=== PATIENT | male | born 1950 | race Caucasian/White ===

== ENCOUNTER → 2016-10-01 | Outpatient (CLI) | payer BC ==
[~2016-10-01] MED LIST: AZEL30SP INTNAS; CHOL1000 PO; CYAN100020 PO; FINA5TAB PO; GLUCTAB7 PO; MILK150C PO; OMEG10007 PO; OXYC-57 PO; PRLSR20 PO; TERA5CAP PO; ZOLP10TA6 PO
--- NOTE | 2016-10-01 09:47 | DIAGNOSTIC IMAGING REPORT ---
RIGHT HUMERUS 2 VIEWS CLINICAL HISTORY: Fall with right arm pain. FINDINGS: AP and lateral views of the right humerus are obtained. No prior studies are available for comparison at the time of dictation. The skeletal structures appear well mineralized. No humeral fracture is seen. The shoulder and elbow joints appear grossly maintained. Mild sclerosis is identified in the greater tuberosity of the humeral head. Productive degenerative change is noted at the acromioclavicular joint. The overlying soft tissues are within normal limits. IMPRESSION: There is no radiographic evidence of right humeral fracture. Electronically signed by: Gabriel James M.D. 10/01/2016 9:44 AM Dictated Date/Time: 10/01/2016 9:43 AM
== END | disposition home or self-care (01) ==
LOC: C.RAD1850 09:20
PROVIDERS: ATTEND Nurse Practitioner Family
DX: M79.621 Pain in right upper arm (principal); W01.10XA Fall on same level from slipping, tripping and stumbling with subsequent striking against unspecified object, initial encounter

== ENCOUNTER → 2016-11-06 | Outpatient (CLI) | payer BC ==
--- NOTE | 2016-11-06 09:23 | DIAGNOSTIC IMAGING REPORT ---
RIGHT INGUINAL ULTRASOUND HISTORY: Intermittent right groin pain and pressure. COMPARISON: None. TECHNIQUE: Sonography of the right inguinal region was performed with and without stress maneuvers. FINDINGS: Note is made of a 3.2 x 2.5 x 1.6 cm cystic abnormality within the right groin which is more evident with the patient in the upright projection. This may have a thin septation with minimal peripheral complexity. This abnormality was compressible and contained no color flow. There is a possible small fat containing right inguinal hernia. IMPRESSION: 1. Possible small fat-containing right inguinal hernia. 2. 3.2 x 2.5 x 1.6 cm cystic abnormality within the right groin which was compressible. This is indeterminate although does not have suspicious imaging characteristics and could potentially be related to a right inguinal hernia sac which contains fluid. A CT of the pelvis could be obtained for further evaluation. Electronically signed by: Clovis Zuñiga M.D. 11/06/2016 9:22 AM Dictated Date/Time: 11/06/2016 9:15 AM
== END | disposition home or self-care (01) ==
LOC: C.ULTR 08:13
PROVIDERS: ATTEND Family Medicine
DX: R10.31 Right lower quadrant pain (principal); R93.5 Abnormal findings on diagnostic imaging of other abdominal regions, including retroperitoneum

== ENCOUNTER → 2016-11-14 | Outpatient (CLI) | payer BC ==
[~2016-11-14] MED LIST changes: +OPTIRAY 320 IV PRN
--- NOTE | 2016-11-14 12:11 | DIAGNOSTIC IMAGING REPORT ---
CT SCAN OF THE ABDOMEN AND PELVIS WITH IV CONTRAST CLINICAL HISTORY: Right lower quadrant abdominal pain. COMPARISON STUDY: Abdominal ultrasound dated 12/29/2005. TECHNIQUE: Following the IV administration of 118 cc of Optiray 320, CT scan of the abdomen and pelvis is performed from the lung bases to the proximal femora. Images are reviewed in the axial, sagittal, and coronal planes. IV contrast was administered without complication. Automated dose control exposure was utilized. CT DOSE: 667.83 mGycm FINDINGS: Lung bases: The heart is normal in size and without pericardial effusion. There is a 5 mm right lower lobe pulmonary nodule seen on image #5. The lung bases are clear. A 3 mm right middle lobe nodule is seen image #19. No airspace consolidation or pleural effusion is identified. There is a tiny hiatal hernia. Liver: The contrast-enhanced liver is normal in size and contour. The liver demonstrates diffusely diminished attenuation consistent with hepatic steatosis. There is no intrahepatic biliary ductal dilatation. The hepatic veins and portal veins are patent. Gallbladder: Unremarkable. Spleen: The spleen is mildly enlarged measuring 13.7 cm in length. The spleen is homogeneous in attenuation. Pancreas: Unremarkable. Adrenal glands: Unremarkable. Kidneys: The contrast enhanced kidneys are normal in size and without hydronephrosis. The kidneys enhance symmetrically. Abdominal vasculature: The abdominal aorta is normal in course and caliber. Bowel: The small bowel and colon are normal in course and caliber. There is moderate diverticulosis of the left colon without CT evidence of acute diverticulitis. The appendix is not visualized. Peritoneum: There is no intraperitoneal free air or abdominal ascites. Lymphadenopathy: None. Pelvic viscera: Although decompressed, the bladder wall appears circumferentially thickened. There is median lobe hypertrophy of the prostate gland. The seminal vesicles are normal as imaged. Fluid is noted along the right inguinal canal. There are numerous calcified phleboliths in the pelvis. Skeletal structures: The skeletal structures are osteopenic. Mild lumbosacral spondylosis is observed. A hemangioma is noted in the body of L2. No lytic or blastic lesions are seen. IMPRESSION: 1. There are no acute infectious or inflammatory findings in the abdomen or pelvis. 2. Hepatic steatosis. 3. Moderate diverticulosis of the left colon without CT evidence of acute diverticulosis. 4. Although decompressed, the bladder wall appears circumferentially thickened. Correlation with urinalysis will be required. 5. There are 2 pulmonary nodules at the right lung base measuring up to 5 mm. Correlation with a nonemergent chest CT is recommended for further interrogation. 6. Mild splenomegaly. 7. Additional findings as above. Electronically signed by: Gabriel James M.D. 11/14/2016 12:09 PM Dictated Date/Time: 11/14/2016 11:39 AM
== END | disposition home or self-care (01) ==
LOC: C.CTS 11:09
PROVIDERS: ATTEND Family Medicine
DX: R10.31 Right lower quadrant pain (principal); K76.0 Fatty (change of) liver, not elsewhere classified; K57.30 Diverticulosis of large intestine without perforation or abscess without bleeding; R91.8 Other nonspecific abnormal finding of lung field

== ENCOUNTER → 2016-11-25 | Outpatient (CLI) | payer BC ==
[~2016-11-25] MED LIST changes: -OPTIRAY 320 IV PRN
--- NOTE | 2016-11-25 08:16 | DIAGNOSTIC IMAGING REPORT ---
CT SCAN OF THE CHEST WITHOUT IV CONTRAST CLINICAL HISTORY: Pulmonary nodule. COMPARISON STUDY: Abdominal CT dated 11/14/2016. TECHNIQUE: CT scan of the thorax was performed from the thoracic inlet to the upper abdomen. Images are reviewed in the axial, sagittal, and coronal planes. IV contrast was not administered for this examination as per the referring clinician. CT DOSE: 318.77 mGy.cm FINDINGS: Thyroid: Imaged portions of the thyroid gland are normal in size and attenuation. Thoracic aorta: The thoracic aorta is normal in caliber and demonstrates standard 3-vessel arch anatomy. Heart: The heart is normal in size and without pericardial effusion. Lungs and pleural spaces: There is no airspace consolidation or pleural effusion. The trachea and central airways are clear. A fat-containing Bochdalek hernia is noted at the left lung base. There is a 4 mm pleural-based nodule in the right middle lobe seen on image #238. A 6 mm right lower lobe nodule seen image #226. These are unchanged from 11/14/[address] scan. No additional pulmonary nodules are identified. Mediastinum: There is no mediastinal lymphadenopathy. Lizett: Not well assessed without IV contrast. Axillae: There is no axillary lymphadenopathy. Upper abdomen: The spleen is mildly enlarged. There is evidence of hepatic steatosis. A tiny hiatal hernia is identified. Skeletal structures: No lytic or blastic bony lesions are seen. IMPRESSION: 1. There is no airspace consolidation or pleural effusion. 2. Unchanged appearance of 2 pulmonary nodules at the right lung base measuring up to 6 mm as compared to the 11/14/[address] These can be followed as per the Fleischner criteria. See below. 3. No additional pulmonary nodules are identified. 4. Hepatic steatosis. Please refer to below summary of Fleischner criteria recommendations for follow-up of incidental CT nodules (Chele Boateng, Guidelines for management of small pulmonary nodules detected on CT scans: A statement from the Fleischner Society, Radiology 237: [id number].) SOLID NODULES Solitary nodule size: <6 mm * low risk patients: no follow-up needed * high risk patients: optional CT at 12 months Solitary nodule size: 6-8 mm * low risk patients: follow-up at 6-12 months, then consider further follow-up at 18-24 months * high risk patients: initial follow-up CT at 6-12 months and then at 18-24 months if no change Solitary nodule size: >8 mm * either low or high risk patients - consider follow-up CT at 3 months, and/or CT-PET, and/or biopsy Multiple nodules size: <6 mm * low risk patients: no routine follow-up * high risk patients: optional CT at 12 months Multiple nodules size: 6-8 mm * low risk patients: follow-up at 3-6 months, then consider further follow-up at 18-24 months * high risk patients: follow-up at 3-6 months, then at 18-24 months if no change Multiple nodules size: >8 mm * low risk patients: follow-up at 3-6 months, then consider further follow-up at 18-24 months * high risk patients: follow-up at 3-6 months, then at 18-24 months if no change Note: newly detected indeterminate nodule in persons 35 years of age or older. * low risk patients: minimal or absent history of smoking and/or other known risk factors * high risk patients: history of smoking or of other known risk factors (e.g. first degree relative with lung cancer, or exposure to asbestos, radon, uranium) * if a nodule up to 8 mm is partly solid or is ground glass further follow-up is required after 24 months to exclude possible slow growing adenocarcinoma (JOSUÉ) SUBSOLID NODULES Solitary pure ground-glass nodule * nodule size <6 mm - no CT follow-up required * nodule size >=6 mm - follow-up CT at 6-12 months, then every 2 years until 5 years Solitary part-solid nodule * nodule size <6 mm - no CT follow-up required * nodule size >=6 mm - follow-up CT at 3-6 months. If unchanged, and solid component remains <6 mm, then annual follow-up for 5 years Multiple subsolid nodules * nodule size <6 mm - follow-up CT at 3-6 months, consider further follow-up at 2 and 4 years if stable * nodule size >=6 mm - follow-up CT at 3-6 months, subsequent management based on the most suspicious nodule(s) Electronically signed by: Gabriel James M.D. 11/25/2016 8:15 AM Dictated Date/Time: 11/25/2016 8:10 AM
== END | disposition home or self-care (01) ==
LOC: C.CTS 07:56
PROVIDERS: ATTEND Family Medicine
DX: R91.1 Solitary pulmonary nodule (principal); R16.1 Splenomegaly, not elsewhere classified

== ENCOUNTER → 2017-04-21 | Day surgery (SDC) | payer BC ==
[2017-04-09 08:41] VITALS: Ht 175.3 cm; Wt 80.9 kg
--- NOTE | 2017-04-09 09:14 | PAT Medication Instructions ---
Service Date Apr 09, 2017. Current Home Medication List Azelastine Hcl-Fluticasone Pro (Dymista), 2 SPRAYS INTNAS QAM Cholecalciferol (Vitamin D3), 1 TAB PO QAM Cyanocobalamin (Vitamin B12), 1,000 MCG PO QAM Finasteride (Proscar), 5 MG PO QAM Fish Oil (Perry-3), 1,000 MG PO QAM Hxmmpovucjd-Bushlpftyha-Qjk C- (Glucosamine Chondroitin), 2 TAB PO QAM Milk Thistle (Silybum Marianum (Milk Thistle), 600 MG PO QAM Omeprazole (Prilosec), 40 MG PO QAM Terazosin (Hytrin), 5 MG PO QAM Zolpidem Tartrate (Zolpidem Tartrate), 1 TAB PO HS Medication Instructions For Your Scheduled Surgery - Hold the following medications starting tomorrow 04/10: Milk Thistle (Silybum Marianum (Milk Thistle), 600 MG PO QAM Fish Oil (Perry-3), 1,000 MG PO QAM Hfmkwwintxw-Okhwfqrvqhx-Sgo C- (Glucosamine Chondroitin), 2 TAB PO QAM - Hold the following medications the morning of surgery: Cholecalciferol (Vitamin D3), 1 TAB PO QAM Cyanocobalamin (Vitamin B12), 1,000 MCG PO QAM - Take the following medications the morning of surgery with a sip of water: Terazosin (Hytrin), 5 MG PO QAM Omeprazole (Prilosec), 40 MG PO QAM Finasteride (Proscar), 5 MG PO QAM Azelastine Hcl-Fluticasone Pro (Dymista), 2 SPRAYS INTNAS QAM (if needed) - Take the following medications as scheduled the night before surgery: Zolpidem Tartrate (Zolpidem Tartrate), 1 TAB PO HS If you have any questions please call us at [phone] or [phone] or [phone]
[2017-04-09 10:38] LABS: BASO % 0.4 %; BASO ABS # 0.03 K/uL (0-0.2); COMPLETE YES; EOS % 1.6 %; HEMATOCRIT 42.3 % (42-52); IG% 0.6 %; LYMPH ABS # 1.63 K/uL (1.2-3.4); MEAN CELL VOLUME 92.8 fL (80-100); MEAN CORPUSCULAR HEMOGLOBIN 32.5 pg (25-34); MEAN PLATELET VOLUME 11.6 fL (7.4-10.4); MONO % 6.8 %; NEUT % 66.6 %; PLATELET COUNT 133 K/uL (130-400); RED BLOOD COUNT 4.56 M/uL (4.7-6.1); WHITE BLOOD COUNT 6.79 K/uL (4.8-10.8)
[2017-04-09 10:55] LABS: ALB/GLOB RATIO 1.1 (0.9-2); BUN/CREATININE RATIO 18.9 (10-20); CALCIUM 8.7 mg/dl (8.5-10.1); CREATININE 1.19 mg/dl (0.60-1.40); POTASSIUM 4.7 mmol/L (3.5-5.1)
[~2017-04-21] VITALS: Ht 175.3 cm; Wt 80.9 kg
[~2017-04-21] MED LIST changes: +ATROPINE SULFATE 0.1 MG/ML 5ML SYR IV PRN; +BUPIVACAINE 0.5 % 5 MG/1 ML MPF 30ML VIAL ONE; +CEFAZOLIN SOD 2000MG/10 ML IV PUSH IV ONE; +DEXAMETHASONE SOD INJ 4 MG/ML VIAL ONE; +EpHEDrine SULFATE 50MG/5ML SYR ONE; +EpHEDrine SULFATE INJ 50 MG/ML AMP IV PRN; +FENTANYL CITRATE INJ 50 MCG/1 ML 2 ML VIAL IV PRN; +FENTANYL CITRATE INJ 50 MCG/1 ML 2 ML VIAL ONE; +GLYCOPYRROLATE INJ 0.2 MG/ML VIAL ONE; +KETOROLAC TROMETHAMINE 30 MG/ML VIAL ONE; +LACTATED RINGER'S 1000ML 1,000 ML IV SCH; +LIDOCAINE HCL 2% 2 ML VIAL (20MG/ML) ONE; +MIDAZOLAM HCL 1 MG/ML 2ML VIAL ONE; +MISSING PHYSICIAN SIGNATURE ON ORDER SCH; +MoRPHine SULFATE 4 MG/ML 1 ML CARP\\VIAL IV PRN; +ONDANSETRON INJ 2 MG/ML 2 ML VIAL IV PRN; +ONDANSETRON INJ 2 MG/ML 2 ML VIAL ONE; +OXYCODONE/ACETAMINOPHEN 5-325 TAB PO PRN; +PROPOFOL IV EMULSION 10 MG/ML 20 ML VIAL IV ONE
[2017-04-21 05:40] VITALS: BP 124/74; PULSE 76; TEMP 36.5; O2SAT 94
--- NOTE | 2017-04-21 07:08 | History & Physical Bridge Note ---
H&P Re-Evaluation Bridge Note: I have examined the patient, reviewed the History & Physical and in the interval since the performance of the History & Physical I have noted the following changes of clinical significance: No changes noted
--- NOTE | 2017-04-21 08:45 | Discharge Instructions ---
Discharge Instructions Date of Service Apr 21, 2017. Visit Reason for Visit: Right Inguinal Hernia Discharge Discharge Diagnosis / Problem: repair of inguinal hernia with mesh Discharge Goals Goal(s): Decrease discomfort Activity Recommendations Activity Limitations: as noted below Lifting Limitations: no more than 10 pounds Shower/Bathe: no limitations (ok to shower) Driving or Machine Use: 1 week Anesthesia . Post Anesthesia Instructions: If you have had General Anesthesia or IV Sedation: * Do not drive today. * Resume driving when surgeon permits. * Do not make important decisions or sign legal documents today. * Call surgeon for: 1. Temperature elevations greater than 101 degrees F. 2. Uncontrollable pain. 3. Excessive bleeding. 4. Persistent nausea and vomiting. 5. Medication intolerance (nausea, vomiting or rash). * For nausea and vomiting use only clear liquids such as: tea, soda, bouillon until nausea subsides, then gradually increase diet as tolerated. * If you have any concerns or questions, call your surgeon's office. If physician is unavailable and it is an emergency, call 911 or go to the nearest emergency room. . Instructions / Follow-Up Instructions / Follow-Up Dr. Patterson in 1-2 weeks as planned, call [phone] if you have any questions You may take ibuprofen 600 mg every 6 hours as needed Diet Recommendations Recommended Home Diet: no limitations Procedures Procedures Performed: Open Right Inguinal Hernia Repair with Mesh Pending Studies Studies pending at discharge: no Medical Emergencies . Who to Call and When: Medical Emergencies: If at any time you feel your situation is an emergency, please call 911 immediately. . Non-Emergent Contact Non-Emergency issues call your: Surgeon Call Non-Emergent contact if: you have a fever, temperature is above 101.5, your pain is not controlled, wound has increased redness, you have any medication questions . . "Provider Documentation" section prepared by Michael Vila. .
--- NOTE | 2017-04-21 08:45 | [facility] Post Operative Brief Note ---
Immediate Operative Summary Operative Date Apr 21, 2017. Pre-Operative Diagnosis Right inguinal hernia Post-Operative Diagnosis Same as preop Procedure(s) Performed Open Right Inguinal Hernia Repair with Mesh Surgeon Dr. Patterson Body Team Member Surgeon(s) Sindy Vila PA-C Estimated Blood Loss 3 cc Findings moderate sized indirect inguinal hernia, high ligation of sac performed, ringplasty, and placement of atrium polypropylene mesh with 0 nurolon sutures. Ilioinguinal nerve divided. Specimens A: hernia sac Drains None Anesthesia GETA Complication(s) None Disposition Recovery Room / PACU
--- NOTE | 2017-04-21 08:52 | [facility] Operative Report ---
Operative Report Operative Date Apr 21, 2017. Pre-Operative Diagnosis Right inguinal hernia Post-Operative Diagnosis indirect right inguinal hernia Procedure(s) Performed Right inguinal hernia repair with mesh Surgeon Dr. Patterson Packing Machine Can Feeder Surgeon(s) Sindy Vila PA-C Estimated Blood Loss 3 cc Findings moderate sized indirect inguinal hernia, high ligation of sac performed, ringplasty performed, and placement of atrium polypropylene mesh with 0 nurolon sutures. Ilioinguinal nerve divided. Specimens A: hernia sac Drains None Anesthesia GETA Complication(s) None Disposition Recovery Room / PACU Indications 67-year-old male presented with symptomatic, reducible, right inguinal hernia. Plan for open right inguinal hernia repair with mesh. The risks of the procedure were discussed, all questions were answered, and the patient agreed to proceed with surgery as planned. Description of Procedure The patient was properly identified, consented, and taken to the operating room where he was placed in the supine position. General endotracheal anesthesia was induced. SCDs and a safety belt were placed. Preoperative antibiotics were administered. The patient's groins and abdomen were prepped and draped in the standard sterile fashion. A surgical timeout was performed and all parties were in agreement that this was the correct patient and procedure to be performed and we continued as planned. Local anesthetic in the form of 0.5% Marcaine was injected along the proposed incision site. An oblique incision was made in the right groin and deepened down to subcutaneous tissue with electrocautery. The aponeurosis of the external oblique muscle was cleared of investing tissue. A small incision was made in the aponeurosis of the external oblique muscle with a knife and lengthened under direct visualization with Metzenbaum scissors. Flaps were raised cephalad and caudad on the posterior portion of the external oblique. The ilioinguinal nerve was identified divided. The cord structures were circumferentially dissected and encircled with a [place] drain. A moderate sized indirect inguinal hernia was noted. The hernia sac was dissected away from the cord structures. The hernia sac was opened and contained no intra-abdominal contents, and a high ligation of the hernia sac was then performed by twisting the sac and suture ligating it with 2-0 Vicryl suture, and allowing it to reduce back into the abdomen. The hernia sac was sent as specimen. Hemostasis was achieved within the wound. A ring plasty was performed with 0 Nurolon sutures. A piece of Atrium inguinal polypropylene mesh was sewn into place using interrupted 0 Nurolon sutures. It was secured to the pubic tubercle medially, the inguinal ligament caudad, and the conjoined tendon cephalad. The internal ring was recreated by securing the tails and could accommodate the tip of the surgeons fifth digit. The wound was irrigated and hemostasis confirmed. The aponeurosis of the external oblique was then closed with a running 3-0 Vicryl suture. The wound was irrigated. Valery's fascia was reapproximated with interrupted 3-0 Vicryl suture. The skin was closed with a running 4-0 Monocryl subcuticular suture, and Dermabond was placed over the incision. The patient was extubated in the operating room and taken to the PACU for recovery without apparent incident. All sponge, instrument, and needle counts were correct at the conclusion of the procedure. The patient tolerated the procedure well. I attest to the content of the Intraoperative Record and any orders documented therein. Any exceptions are noted below.
--- NOTE | 2017-04-21 09:36 | Anesthesiology Progress Note ---
Anesthesia Post Op Note Date & Time Apr 21, 2017 at 09:36 Vital Signs Pain Intensity: 0 Vital Signs Past 12 Hours Date Time Temp Pulse Resp B/P (MAP) Pulse Ox O2 Delivery O2 Flow Rate FiO2 04/21/17 09:30 72 20 114/75 93 Room Air 04/21/17 09:20 77 14 115/77 93 Room Air 04/21/17 09:10 82 14 108/75 92 Room Air 04/21/17 09:00 76 14 106/74 96 Oxymask 10 04/21/17 08:50 79 14 109/71 96 Oxymask 10 04/21/17 08:44 36.6 88 14 121/73 93 Oxymask 10 04/21/17 05:40 36.5 76 18 124/74 (91) 94 Room Air Notes Mental Status: alert / awake / arousable, participated in evaluation Pt Amnestic to Procedure: Yes Nausea / Vomiting: adequately controlled Pain: adequately controlled Airway Patency, RR, SpO2: stable & adequate BP & HR: stable & adequate Hydration State: stable & adequate Anesthetic Complications: no major complications apparent
[2017-04-21 09:40] VITALS: BP 116/75; PULSE 76; TEMP 36.4; O2SAT 96
[2017-04-21 10:10] VITALS: BP 118/67; PULSE 77; O2SAT 94
[2017-04-21 10:40] VITALS: BP 112/63; PULSE 72; TEMP 36.5; O2SAT 98
== END | disposition home or self-care (01) ==
LOC: C.ACU 05:20
PROVIDERS: ATTEND Surgery
DX: K40.90 Unilateral inguinal hernia, without obstruction or gangrene, not specified as recurrent (principal)

== ENCOUNTER → 2017-06-19 | Outpatient (CLI) | payer OTHER ==
[~2017-06-19] MED LIST changes: -ATROPINE SULFATE 0.1 MG/ML 5ML SYR IV PRN; -BUPIVACAINE 0.5 % 5 MG/1 ML MPF 30ML VIAL ONE; -CEFAZOLIN SOD 2000MG/10 ML IV PUSH IV ONE; -DEXAMETHASONE SOD INJ 4 MG/ML VIAL ONE; -EpHEDrine SULFATE 50MG/5ML SYR ONE; -EpHEDrine SULFATE INJ 50 MG/ML AMP IV PRN; -FENTANYL CITRATE INJ 50 MCG/1 ML 2 ML VIAL IV PRN; -FENTANYL CITRATE INJ 50 MCG/1 ML 2 ML VIAL ONE; -GLYCOPYRROLATE INJ 0.2 MG/ML VIAL ONE; -KETOROLAC TROMETHAMINE 30 MG/ML VIAL ONE; -LACTATED RINGER'S 1000ML 1,000 ML IV SCH; -LIDOCAINE HCL 2% 2 ML VIAL (20MG/ML) ONE; -MIDAZOLAM HCL 1 MG/ML 2ML VIAL ONE; -MISSING PHYSICIAN SIGNATURE ON ORDER SCH; -MoRPHine SULFATE 4 MG/ML 1 ML CARP\\VIAL IV PRN; -ONDANSETRON INJ 2 MG/ML 2 ML VIAL IV PRN; -ONDANSETRON INJ 2 MG/ML 2 ML VIAL ONE; -OXYCODONE/ACETAMINOPHEN 5-325 TAB PO PRN; -PROPOFOL IV EMULSION 10 MG/ML 20 ML VIAL IV ONE
--- NOTE | 2017-06-19 09:12 | DIAGNOSTIC IMAGING REPORT ---
CT SCAN OF THE CHEST WITHOUT IV CONTRAST CLINICAL HISTORY: Follow-up pulmonary nodule. COMPARISON STUDY: Chest CT dated 11/25/2016. Abdominal CT dated 11/14/2016. TECHNIQUE: CT scan of the thorax was performed from the thoracic inlet to the upper abdomen. Images are reviewed in the axial, sagittal, and coronal planes. IV contrast was not administered for this examination as per the referring clinician. A dose lowering protocol was utilized adhering to the principles of ALARA. CT DOSE: 487.31 mGy.cm FINDINGS: Thyroid: Imaged portions of the thyroid gland are normal in size and attenuation. Thoracic aorta: The thoracic aorta is normal in caliber and demonstrates standard 3-vessel arch anatomy. Heart: The heart is normal in size and without pericardial effusion. Lungs and pleural spaces: There is no airspace consolidation or pleural effusion. The trachea and central airways are clear. A fat-containing Bochdalek hernia is noted at the left lung base. There is a 4 mm pleural-based nodule in the right middle lobe seen on image #224. A 6 mm right lower lobe nodule seen image #207. These are unchanged dating back to the 11/14/[address] scan. No new pulmonary nodule is identified. Mediastinum: There is no mediastinal lymphadenopathy. Lizett: Not well assessed without IV contrast. Axillae: There is no axillary lymphadenopathy. Upper abdomen: The spleen is mildly enlarged. There is evidence of hepatic steatosis. A tiny hiatal hernia is identified. Skeletal structures: The skeletal structures are osteopenic. Arthritic change is seen in the shoulders. No lytic or blastic bony lesions are seen. A hemangioma is noted in the body of L2. IMPRESSION: 1. There is no airspace consolidation or pleural effusion. 2. Unchanged appearance of 2 pulmonary nodules at the right lung base measuring up to 6 mm dating back to the 11/14/[address] Continued follow-up is recommended as per the Fleischner criteria. See below. 3. No new pulmonary nodules are identified. 4. Hepatic steatosis and mild splenomegaly. Please refer to below summary of Fleischner criteria recommendations for follow-up of incidental CT nodules (Chele Boateng, Guidelines for management of small pulmonary nodules detected on CT scans: A statement from the Fleischner Society, Radiology 237: [phone].) SOLID NODULES Solitary nodule size: <6 mm * low risk patients: no follow-up needed * high risk patients: optional CT at 12 months Solitary nodule size: 6-8 mm * low risk patients: follow-up at 6-12 months, then consider further follow-up at 18-24 months * high risk patients: initial follow-up CT at 6-12 months and then at 18-24 months if no change Solitary nodule size: >8 mm * either low or high risk patients - consider follow-up CT at 3 months, and/or CT-PET, and/or biopsy Multiple nodules size: <6 mm * low risk patients: no routine follow-up * high risk patients: optional CT at 12 months Multiple nodules size: 6-8 mm * low risk patients: follow-up at 3-6 months, then consider further follow-up at 18-24 months * high risk patients: follow-up at 3-6 months, then at 18-24 months if no change Multiple nodules size: >8 mm * low risk patients: follow-up at 3-6 months, then consider further follow-up at 18-24 months * high risk patients: follow-up at 3-6 months, then at 18-24 months if no change Note: newly detected indeterminate nodule in persons 35 years of age or older. * low risk patients: minimal or absent history of smoking and/or other known risk factors * high risk patients: history of smoking or of other known risk factors (e.g. first degree relative with lung cancer, or exposure to asbestos, radon, uranium) * if a nodule up to 8 mm is partly solid or is ground glass further follow-up is required after 24 months to exclude possible slow growing adenocarcinoma (JOSUÉ) SUBSOLID NODULES Solitary pure ground-glass nodule * nodule size <6 mm - no CT follow-up required * nodule size >=6 mm - follow-up CT at 6-12 months, then every 2 years until 5 years Solitary part-solid nodule * nodule size <6 mm - no CT follow-up required * nodule size >=6 mm - follow-up CT at 3-6 months. If unchanged, and solid component remains <6 mm, then annual follow-up for 5 years Multiple subsolid nodules * nodule size <6 mm - follow-up CT at 3-6 months, consider further follow-up at 2 and 4 years if stable * nodule size >=6 mm - follow-up CT at 3-6 months, subsequent management based on the most suspicious nodule(s) Electronically signed by: Gabriel James M.D. 06/19/2017 9:11 AM Dictated Date/Time: 06/19/2017 9:07 AM
== END | disposition home or self-care (01) ==
LOC: C.CTS 08:48
PROVIDERS: ATTEND Family Medicine
DX: R91.1 Solitary pulmonary nodule (principal); K76.0 Fatty (change of) liver, not elsewhere classified; R16.1 Splenomegaly, not elsewhere classified

== ENCOUNTER 2022-06-26 10:02 | Inpatient (IN) ==
[2022-06-26] MEDS ORDERED: SODIUM CHLORIDE 0.9% 1000ML 1,000 ML IV STA (10:27)
[2022-06-26] MEDS ORDERED: ONDANSETRON INJ 2 MG/ML 2 ML VIAL IV STA ×2 (10:27→15:32)
--- NOTE | 2022-06-26 10:30 | Emergency Department Note ---
Impression & Plan SBO (small bowel obstruction) ADMIT ED Provider Note HPI: The patient is a 72-year-old male who presents emergency department with 2 days of mid abdominal pain as well as nausea and vomiting. Patient states he saw his PCP this morning who thought he likely had enteritis however over concern for the patient's symptoms and possible dehydration he was sent to the ED for further evaluation. On arrival here to the ED the patient is in no acute distress, he has some mild abdominal tenderness on exam but he is otherwise hemodynamically stable and saturating well on room air. Patient states that he has had some difficulty with p.o. intake over the past 2 days and seems to have vomiting every time he eats or drinks anything. ROS: - Per HPI *Outpatient medications and allergy history reviewed. *Pertinent external medical records reviewed. 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 IV was established, lab work obtained, patient was placed on equipment monitor phototypesetting. CT imaging of the abdomen pelvis was obtained that shows concern for possible small bowel obstruction, patient's lab work shows a mild leukocytosis, otherwise no critical electrolyte abnormalities are noted. On reassessment patient states he still does have some discomfort but is improved from previous. He was given some Protonix as he also complained of some epigastric discomfort later in his stay. Suspect this is likely gastritis secondary to his episodes of vomiting. I discussed CT imaging and lab work results with the patient and his , he has not had any active vomiting while here in the ED therefore will defer NG tube placement unless he becomes more symptomatic. Case was discussed with on-call general surgery midlevel provider, Aggie Tim, in general surgery consultation was placed. Case was then discussed with the hospitalist service for Karishma Conklin and the patient was placed for admission in stable condition for further care. Disposition discussion held by myself with: Patient and at the bedside Diagnosis: 1. Nausea and vomiting, acute 2. Small bowel obstruction, acute 3. Abdominal pain, acute 4. Leukocytosis, nonspecific Disposition: Admission Alexander Perales DO Emergency Medicine Past Med/Surg History Medical History (Updated 06/26/22 @ 14:28 by Alexander Perales DO) BPH (benign prostatic hyperplasia) Chronic bronchitis STATES YEARS AGO; NO ISSUES IN YEARS GERD (gastroesophageal reflux disease) Hyperlipidemia Osteoarthritis HIPS Rotator cuff injury RIGHT Surgical History History of left cataract surgery S/P appendectomy S/P colon resection DURING APPY SURGEON REMOVED SOMETHING SUSPICIOUS IN COLON S/P colonoscopy S/P inguinal hernia repair RIGHT Status post tonsillectomy Social History Smoking Status: Never smoker Second Hand Exposure: No; Hx Alcohol Use: Yes (2-3 PER DAY) Alcohol type: beer, wine and hard liquor Hx Substance Use: No Preferred Language: Czech Communication Ability: Effective Yard Driver Required: No Beliefs That Will Affect Care: None Current Living Situation: Spouse Feels Safe at Home: Yes Assistive Devices: None Allergies Allergies Allergy/AdvReac Type Severity Reaction Status Date / Time No Known Allergies Allergy Verified 10/28/21 11:55 Home Meds Home Medications Medication Instructions Recorded Confirmed acidophilus 100 million 1 cap PO QAM 10/10/21 10/28/21 cell-pectin, citrus 10 mg capsule atorvastatin 20 mg tablet 20 mg PO DAILY 10/10/21 10/28/21 azelastine 205.5 mcg (0.15 %) 2 spray intranasal BID PRN 10/10/21 10/28/21 nasal spray CONGESTED chlorpheniramine-phenylpropan 4 1 tab PO QAM 10/10/21 10/28/21 mg-25 mg tablet dicyclomine 10 mg capsule 10 mg PO QID PRN Abdominal Pain 10/10/21 10/28/21 famotidine 20 mg tablet (Pepcid) 20 mg PO QID PRN Heartburn 10/10/21 10/28/21 finasteride 5 mg tablet 5 mg PO QAM 10/10/21 10/28/21 glucosamine sulfate 500 mg tablet 500 mg PO QAM 10/10/21 10/28/21 (Glucosamine) multivitamin 1 tab PO QAM 10/10/21 10/28/21 s-adenosylmethionine 400 mg tablet 400 mg PO QAM 10/10/21 10/28/21 ([place]avan-E) terazosin 5 mg tablet 5 mg PO QAM 10/10/21 10/28/21 vitamin E 400 unit tablet 400 unit PO QAM 10/10/21 10/28/21 zolpidem 10 mg tablet 10 mg PO HS 10/10/21 10/28/21 Results & Data (ED) Vital Signs Vital Signs - 24 hr 06/26/22 10:09 06/26/22 10:59 06/26/22 12:48 Temperature 36.1 C L Temperature Source Oral Pulse Rate 67 Pulse Rate [Right Finger] 72 Pulse Rhythm Regular Pulse Strength Normal Respiratory Rate 18 20 Respiratory Effort / Characteristics Non-Labored Spontaneous Non-Labored Respiratory Depth Normal Normal Respiratory Pattern Regular Blood Pressure 136/88 Blood Pressure [Right Arm] 147/85 H Blood Pressure Mean 104 Blood Pressure Mean [Right Arm] 105 Blood Pressure Position Sitting Pulse Oximetry 95 95 Oxygen Delivery Method Room Air Room Air Sepsis Recent Fever Within 48 Hours No Sepsis New/Unexplained Change in Mental Status No Sepsis Action Taken by Nursing No Action Required 06/26/22 13:55 Temperature Temperature Source Pulse Rate Pulse Rate [Right Finger] 66 Pulse Rhythm Pulse Strength Respiratory Rate 20 Respiratory Effort / Characteristics Non-Labored Respiratory Depth Normal Respiratory Pattern Blood Pressure Blood Pressure [Right Arm] 144/86 H Blood Pressure Mean Blood Pressure Mean [Right Arm] 105 Blood Pressure Position Pulse Oximetry 94 Oxygen Delivery Method Room Air Sepsis Recent Fever Within 48 Hours Sepsis New/Unexplained Change in Mental Status Sepsis Action Taken by Nursing Laboratory Data 06/26/22 10:55 06/26/22 10:55 Lab Results 06/26/22 06/26/22 Range/Units 10:55 10:55 WBC 13.76 H (4.8-10.8) K/ul RBC 4.98 (4.63-6.08) M/uL Hgb 15.7 (14.0-18.0) g/dl Hct 45.9 (40.1-51.0) % MCV 92.2 (80.0-100.0) fL MCH 31.5 (25.0-34.0) pg MCHC 34.2 (32.0-36.0) g/dL RDW Std Deviation 38.3 (36.4-46.3) fL RDW Coeff of [place] 11.3 L (11.5-14.5) % Plt Count 160 (130-400) K/uL MPV 11.5 (9.4-12.4) fL Immature Gran % (Auto) 0.2 % Neut % (Auto) 87.5 % Lymph % (Auto) 7.8 % [place] % (Auto) 4.4 % Eos % (Auto) 0.0 % Baso % (Auto) 0.1 % Neut # (Auto) 12.04 H (1.4-6.5) K/uL Lymph # (Auto) 1.07 L (1.2-3.4) K/uL [place] # (Auto) 0.60 (0.24-0.82) K/uL Eos # (Auto) 0.00 (0-0.50) K/uL Baso # (Auto) 0.02 (0-0.2) K/uL Immature Gran # (Auto) 0.03 H (0.00-0.02) K/uL Sodium 142 (136-145) mmol/L Potassium 3.8 (3.5-5.1) mmol/L Chloride 103 (98-107) mmol/L Carbon Dioxide 33 H (21-32) mmol/L Anion Gap 6 (3-11) BUN 24 H (6-23) mg/dl Creatinine 1.06 (0.6-1.4) mg/dl Est Cr Clr Drug Dosing 58.9 ml/min Est GFR ( Amer) 80.9 ml/min Est GFR (Non-Af Amer) 69.8 ml/min BUN/Creatinine Ratio 22.6 H (10-20) Glucose 142 H (70-99(Fasting)) mg/dl Calcium 9.8 (8.5-10.1) mg/dl Total Bilirubin 0.9 (0.2-1.0) mg/dl AST 29 (13-39) U/L ALT 25 (7-52) U/L Alkaline Phosphatase 57 (34-104) U/L Total Protein 6.7 (6.0-8.3) gm/dl Albumin 4.2 (3.4-5.0) gm/dl Globulin 2.5 (2.5-4.0) gm/dl Albumin/Globulin Ratio 1.7 (0.9-2) Lipase 15 (11-82) U/L Administered Medications Discontinued Medications Sodium Chloride (Nss 1000ml) 1,000 mls @ 999 mls/hr IV .Q1H1M STA Stop: 06/26/22 11:27 Last Infusion: 06/26/22 12:13 Dose: 0 mls/hr Documented By: Admin: 06/26/22 11:00 Dose: 999 mls/hr Documented By: LEXI Sodium Chloride (Nss 1000ml) 1,000 mls @ 999 mls/hr IV .Q1H1M ONE Stop: 06/26/22 14:17 Last Admin: 06/26/22 13:54 Dose: 999 mls/hr Documented By: TYE Pantoprazole Sodium 40 mg/ (Syringe) 10 mls @ 5 mls/min IV NOW ONE Stop: 06/26/22 13:56 Last Admin: 06/26/22 14:18 Dose: 5 mls/min Documented By: TYE Ioversol (Optiray 350 100ml) 90 ml IV ONCE ONE Stop: 06/26/22 12:46 Last Admin: 06/26/22 12:45 Dose: 90 ml Documented By: VIRGILIO Ondansetron HCl (Ondansetron Inj 2 Mg/Ml 2 Ml Vial) 4 mg IV NOW STA Stop: 06/26/22 10:28 Last Admin: 06/26/22 11:18 Dose: 4 mg Documented By: TYE Imaging Data Radiologist's Impression: Abdomen/Pelvis CT 06/26/22 10:27 CT abd pelvis IV con only CLINICAL HISTORY: Abdominal pain, history of diverticulitis, n/v TECHNIQUE: Helical axial images of the abdomen and pelvis were obtained and displayed. Automated dose lowering techniques and/or adjustment according to patient size were utilized for this exam. This exam was performed with intravenous contrast. CT DOSE: 485.62 mGy.cm COMPARISON: Comparison is made to CT abdomen pelvis 06/26/2021 FINDINGS: Lower chest: Bibasilar atelectasis versus scarring is seen. There is a 5 mm pleural-based nodule in the right lower lobe (series 3 image 36). Liver: Unremarkable. No focal lesions are seen. Gallbladder and biliary tree: No calcified gallstones. Normal caliber wall. No intra- or extrahepatic biliary ductal dilation. Pancreas: Unremarkable, no focal lesions. Spleen: Unremarkable. Adrenals: Unremarkable. Kidneys and ureters: Unremarkable. Bladder: Unremarkable. Reproductive organs: Unremarkable. Bowel: Diverticulosis is seen without evidence of diverticulitis. There are numerous dilated loops of small bowel as well as prominent dilation of the stomach. No proximal transition point is seen. There is a gradual transition point in the distal ileum. There is surrounding fat stranding and a small amount of free fluid. No pneumatosis intestinalis is seen. Small amount of stool is noted in the colon. Lymph nodes Retroperitoneal: Unremarkable. Pelvic: Unremarkable. Mesenteric: Unremarkable. Peritoneum: Normal. Vessels: Mild atherosclerotic disease is seen. Abdominal wall: Unremarkable. Bones: Degenerative changes in the visualized spine. IMPRESSION: 1. Multiple distended loops of bowel are seen with a gradual distal transition to underdistended ileum. Findings are compatible with ileus versus low-grade small bowel obstruction. No evidence of bowel perforation or necrosis is seen. 2. Diverticulosis without diverticulitis. 3. Stable 5 mm pleural-based lung nodule in the right lower lobe. ACT 112: Negative or not required by law. Electronically signed by: Akash Lester M.D. 06/26/2022 1:15 PM Discharge Plan Visit Data Chief Complaint: Vomiting Stated Complaint: CRAMPS AND VOMITING ED Provider: Alexander Perales Discharge Problem: SBO (small bowel obstruction) Patient Disposition: Admitted As Inpatient Forms Stand Alone Forms: [facility] Prescriptions Prescriptions: No Action multivitamin Tablet 1 tab PO QAM chlorpheniramine-phenylpropan 4-25 mg Tablet 1 tab PO QAM terazosin 5 mg Tablet 5 mg PO QAM atorvastatin 20 mg Tablet 20 mg PO DAILY glucosamine sulfate [Glucosamine] 500 mg Tablet 500 mg PO QAM famotidine [Pepcid] 20 mg Tablet 20 mg PO QID PRN (Reason: Heartburn) vitamin E 400 unit Tablet 400 unit PO QAM zolpidem 10 mg Tablet 10 mg PO HS dicyclomine 10 mg Capsule 10 mg PO QID PRN (Reason: Abdominal Pain) finasteride 5 mg Tablet 5 mg PO QAM Donavan-E 400 mg Tablet 400 mg PO QAM azelastine 205.5 mcg (0.15 %) [place],Non-Aerosol 2 spray INTRANASAL BID PRN (Reason: CONGESTED) acidophilus-pectin, citrus 100 million cell-10 mg Capsule 1 cap PO QAM Referrals Referrals: Ashvin Hu MD [Primary Care Provider] -
[2022-06-26 11:16] LABS: Hematocrit (blood only) 45.9 % (40.1-51.0); Hemoglobin 15.7 g/dl (14.0-18.0); Lymphocytes % (auto) 7.8 %; Mean Corpuscular Hemoglobin 31.5 pg (25.0-34.0); Mean Corpuscular Hgb Conc 34.2 g/dL (32.0-36.0); Mean Corpuscular Volume 92.2 fL (80.0-100.0); Mean Platelet Volume 11.5 fL (9.4-12.4); Monocytes % (auto) 4.4 %; Neutrophils % (auto) 87.5 %; Platelet Count 160 K/uL (130-400); RDW Coefficient of Variation 11.3 % (11.5-14.5); RDW Standard Deviation 38.3 fL (36.4-46.3); Red Blood Count 4.98 M/uL (4.63-6.08); White Blood Count 13.76 K/ul (4.8-10.8)
[2022-06-26 11:17] LABS: Basophils # (auto) 0.02 K/uL (0-0.2); Basophils % (auto) 0.1 %; Immature Granulocytes # (auto) 0.03 K/uL (0.00-0.02); Immature Granulocytes % (auto) 0.2 %; Lymphocytes # (auto) 1.07 K/uL (1.2-3.4); Neutrophils # (auto) 12.04 K/uL (1.4-6.5)
[2022-06-26 12:19] LABS: Albumin Level 4.2 gm/dl (3.4-5.0); Bilirubin,Total 0.9 mg/dl (0.2-1.0); Calcium 9.8 mg/dl (8.5-10.1); Creatinine Clr Calc Pharmacy 58.9 ml/min; Est GFR (African American) 80.9 ml/min; Est GFR (Non-African American) 69.8 ml/min; Potassium 3.8 mmol/L (3.5-5.1); Total Protein 6.7 gm/dl (6.0-8.3)
[2022-06-26 12:25] LABS: Albumin Globulin Ratio 1.7 (0.9-2); BUN Creatinine Ratio 22.6 (10-20); Globulin 2.5 gm/dl (2.5-4.0)
[2022-06-26] MEDS ORDERED: OPTIRAY 350 100ml IV ONE (12:45)
--- NOTE | 2022-06-26 13:16 | CT Scan Report ---
CT abd pelvis IV con only CLINICAL HISTORY: Abdominal pain, history of diverticulitis, n/v TECHNIQUE: Helical axial images of the abdomen and pelvis were obtained and displayed. Automated dose lowering techniques and/or adjustment according to patient size were utilized for this exam. This e xam was performed with intravenous contrast. CT DOSE: 485.62 mGy.cm COMPARISON: Comparison is made to CT abdomen pelvis 06/26/2021 FINDINGS: Lower chest: Bibasilar atelectasis versus scarring is seen. There is a 5 mm pleural-based nodule in the right lower lobe (series 3 image 36). Liver: Unremarkable. No focal lesions are seen. Gallbladder and biliary tree: No calcified gallstones. Normal caliber wall. No intra- or extrahepatic biliary ductal dilation. Pancreas: Unremarkable, no focal lesions. Spleen: Unremarkable. Adrenals: Unremarkable. Kidneys and ureters: Unremarkable. Bladder: Unremarkable. Reproductive organs: Unremarkable. Bowel: Diverticulosis is seen without evidence of diverticulitis. There are numerous dilated loops of small bowel as well as prominent dilation of the stomach. No proximal transition point is seen. Ther e is a gradual transition point in the distal ileum. There is surrounding fat stranding and a small a mount of free fluid. No pneumatosis intestinalis is seen. Small amount of stool is noted in the colon . Lymph nodes Retroperitoneal: Unremarkable. Pelvic: Unremarkable. Mesenteric: Unremarkable. Peritoneum: Normal. Vessels: Mild atherosclerotic disease is seen. Abdominal wall: Unremarkable. Bones: Degenerative changes in the visualized spine. IMPRESSION: 1. Multiple distended loops of bowel are seen with a gradual distal transition to underdistended ile um. Findings are compatible with ileus versus low-grade small bowel obstruction. No evidence of bowel perforation or necrosis is seen. 2. Diverticulosis without diverticulitis. 3. Stable 5 mm pleural-based lung nodule in the right lower lobe. ACT 112: Negative or not required by law. Electronically signed by: Akash Lester M.D. 06/26/2022 1:15 PM
[2022-06-26] MEDS ORDERED: SODIUM CHLORIDE 0.9% 1000ML 1,000 ML IV ONE (13:17)
[2022-06-26] MEDS ORDERED: PANTOprazole 40 MG in SYRINGE 0 ML IV ONE (13:55)
--- NOTE | 2022-06-26 14:10 | History & Physical Report ---
Date of Service June 26, 2022 Assessment & Plan (1) SBO (small bowel obstruction): Plan: - 2 days of moderate abdominal cramping, nausea, vomiting, last BM today. Has been having daily BMs. - CTAP: Multiple distended loops of bowel are seen with a gradual distal tr ansition to underdistended ileum. Findings are compatible with ileus versus low- grade small bowel obstruction. No evidence of bowel perforation or necrosis is seen. Diverticulosis without diverticulitis. Stable 5 mm pleural-based lung nodule in the right lower lobe. - Vomiting has subsided. Was able to eat cheerios this morning without vomiting. With daily BMs, suspect if he had a partial SBO that it may be resolving. - General surgery consulted, appreciate recommendations and assistance with this patient. - NPO, LRs 125 cc/hr. Will hold off on NG tube given vomiting is subsided. (2) Hyperlipidemia: Plan: - Hold statin for now while NPO for possible SBO. (3) GERD (gastroesophageal reflux disease): Plan: - IV Protonix daily while NPO for possible SBO. (4) BPH (benign prostatic hyperplasia): Plan: - Hold terazosin, finasteride while NPO for possible SBO. Plan - Admit to med/surg. - SCDs for VTE ppx. - Full Code. History of Present Illness Chief Complaint: abdominal cramping, nausea, vomiting x 2 days Primary Care Provider: Ashvin Hu MD Malik Peck is a 72-year-old male with past medical history significant for hyperlipidemia, GERD, osteoarthritis, BPH, and partial colectomy in 2/2 diverticulitis who is presenting today with abdominal pain. He was at his GI doctor's office today to be seen for 2 days of mid abdominal pain associate with nausea and vomiting. He feels his abdomen is distended. He has been having daily bowel movements, normal in appearance for him without melena or hematochezia. They are formed. He has vomiting has been better since this morning and he was able to eat a small amount of Cheerios without regurgitation or vomiting. He has been afebrile. His biggest complaint at this point is nausea. Given concern for possible bowel obstruction and dehydration, he was sent to the ED for further evaluation. He has a history of rectal prolapse surgery within the past 2 years as well as a colectomy in the for dive rticulitis. On presentation, vital signs within normal limits and stable. Labs notable for a white count of 13 with left shift. Lactate pending. There are no electrolyte abnormalities, his renal function is at baseline, without elevated LFTs. Lipase 15. CT A/P shows multiple distended loops of bowel seen with a gradual distal transition to an under distended ileum, findings compatible with ileus versus low-grade small bowel obstruction. There is no evidence of bowel perforation or necrosis seen. There is diverticulosis without diverticulitis, and a stable 5 mm pleural-based lung nodule in the right lower lobe. Allergies Allergy/AdvReac Type Severity Reaction Status Date / Time No Known Allergies Allergy Verified 06/26/22 16:21 Home Medications Medication Instructions Recorded Confirmed Type acidophilus 100 million 1 cap PO QAM 10/10/21 06/26/22 History cell-pectin, citrus 10 mg capsule atorvastatin 20 mg tablet 20 mg PO DAILY 10/10/21 06/26/22 History azelastine 205.5 mcg (0.15 %) 2 spray intranasal BID PRN 10/10/21 06/26/22 History nasal spray Congestion dicyclomine 10 mg capsule 10 mg PO QID PRN Abdominal Pain 10/10/21 06/26/22 History finasteride 5 mg tablet 5 mg PO QAM 10/10/21 06/26/22 History s-adenosylmethionine 400 mg tablet 400 mg PO QAM 10/10/21 06/26/22 History (Donavan-E) cholecalciferol (vitamin D3) 25 0 mcg PO DAILY 06/26/22 06/26/22 History mcg (1,000 unit) tablet (Vitamin D3) glucosamine sulfate 1,000 mg 1,000 mg PO DAILY 06/26/22 06/26/22 History capsule omeprazole 20 mg capsule,delayed 20 mg PO BID 06/26/22 06/26/22 History release terazosin 5 mg capsule 5 mg PO QAM 06/26/22 06/26/22 History vitamin E 268 mg (400 unit) capsule 268 mg PO DAILY 06/26/22 06/26/22 History Past Med/Surg History Medical History (Updated 06/26/22 @ 14:28 by Alexander Perales DO) BPH (benign prostatic hyperplasia) Chronic bronchitis STATES YEARS AGO; NO ISSUES IN YEARS GERD (gastroesophageal reflux disease) Hyperlipidemia Osteoarthritis HIPS Rotator cuff injury RIGHT Surgical History History of left cataract surgery S/P appendectomy S/P colon resection DURING APPY SURGEON REMOVED SOMETHING SUSPICIOUS IN COLON S/P colonoscopy S/P inguinal hernia repair RIGHT Status post tonsillectomy Social History Smoking Status: Never smoker Second Hand Exposure: No; Hx Alcohol Use: Yes (2-3 PER DAY) Alcohol type: beer, wine and hard liquor Hx Substance Use: No Preferred Language: Malay Communication Ability: Effective Stoker Mechanic Required: No Beliefs That Will Affect Care: None Current Living Situation: Spouse Feels Safe at Home: Yes Assistive Devices: None Review of Systems Review of Systems: Constitutional: No fever/chills, weakness, fatigue, myalgias, anorexia, night sweats Eyes: No diplopia, no worsening or blurred vision ENT: normal hearing, no trouble swallowing Respiratory: No cough, sputum, dyspnea at rest or on exertion Cardiovascular: No chest pain, tightness or palpitations Abdomen: Abdominal pain, nausea, nonbloody emesis x15 times over past 2 days with daily, nonbloody BMs : Denies dysuria, hematuria, increased urgency/frequency, urinary retention Musculoskeletal: No joint pain, calf pain, swelling Neurologic: No weakness, numbness/tingling, or balance problems Psychiatric: No anxiety or depression Skin: No rash or itch Physical Exam Physical Exam: General: awake, alert, no apparent distress Head: Normocephalic, atraumatic ENT: PERRL, EOMI, no pharyngeal exudate, mucous membranes moist Chest: Clear to auscultation, on room air, no adventitious breath sounds Cardiac: Regular rate and rhythm, no murmur, no JVD, normal peripheral pulses, good capillary refill Abdominal: Mildly distended abdomen, soft, NABS x 4 quadrants, nontender to palpation, no rebound, guarding or tenderness Extremities: Normal inspection, no peripheral edema or erythema, calfs nontender to palpation Psych: Normal mood and affect Neuro: AAO x 3, strength intact bilaterally and rated 5/5, no motor deficits, speech is clear, no peripheral sensory deficits Skin: no rash or erythema Results & Data Results & Data ([facility]) Vital Signs (Past 12 Hours) Vital Signs Temp Pulse Pulse Resp BP BP Pulse Ox 06/26/22 13:55 66 20 144/86 H 94 06/26/22 12:48 72 20 147/85 H 95 06/26/22 10:59 06/26/22 10:09 36.1 C L 67 18 136/88 95 O2 Del Method 06/26/22 13:55 Room Air 06/26/22 12:48 Room Air 06/26/22 10:59 Room Air 06/26/22 10:09 Laboratory Results Abnormal lab results 06/26/22 06/26/22 Range/Units 10:55 10:55 WBC 13.76 H (4.8-10.8) K/ul RDW Coeff of [place] 11.3 L (11.5-14.5) % Neut # (Auto) 12.04 H (1.4-6.5) K/uL Lymph # (Auto) 1.07 L (1.2-3.4) K/uL Immature Gran # (Auto) 0.03 H (0.00-0.02) K/uL Carbon Dioxide 33 H (21-32) mmol/L BUN 24 H (6-23) mg/dl BUN/Creatinine Ratio 22.6 H (10-20) Glucose 142 H (70-99(Fasting)) mg/dl Diagnostic Findings Abdomen/Pelvis CT 06/26/22 10:27 CT abd pelvis IV con only CLINICAL HISTORY: Abdominal pain, history of diverticulitis, n/v TECHNIQUE: Helical axial images of the abdomen and pelvis were obtained and displayed. Automated dose lowering techniques and/or adjustment according to patient size were utilized for this exam. This exam was performed with intravenous contrast. CT DOSE: 485.62 mGy.cm COMPARISON: Comparison is made to CT abdomen pelvis 06/26/2021 FINDINGS: Lower chest: Bibasilar atelectasis versus scarring is seen. There is a 5 mm pleural-based nodule in the right lower lobe (series 3 image 36). Liver: Unremarkable. No focal lesions are seen. Gallbladder and biliary tree: No calcified gallstones. Normal caliber wall. No intra- or extrahepatic biliary ductal dilation. Pancreas: Unremarkable, no focal lesions. Spleen: Unremarkable. Adrenals: Unremarkable. Kidneys and ureters: Unremarkable. Bladder: Unremarkable. Reproductive organs: Unremarkable. Bowel: Diverticulosis is seen without evidence of diverticulitis. There are numerous dilated loops of small bowel as well as prominent dilation of the stomach. No proximal transition point is seen. There is a gradual transition point in the distal ileum. There is surrounding fat stranding and a small amount of free fluid. No pneumatosis intestinalis is seen. Small amount of stool is noted in the colon. Lymph nodes Retroperitoneal: Unremarkable. Pelvic: Unremarkable. Mesenteric: Unremarkable. Peritoneum: Normal. Vessels: Mild atherosclerotic disease is seen. Abdominal wall: Unremarkable. Bones: Degenerative changes in the visualized spine. IMPRESSION: 1. Multiple distended loops of bowel are seen with a gradual distal transition to underdistended ileum. Findings are compatible with ileus versus low-grade small bowel obstruction. No evidence of bowel perforation or necrosis is seen. 2. Diverticulosis without diverticulitis. 3. Stable 5 mm pleural-based lung nodule in the right lower lobe. ACT 112: Negative or not required by law. Electronically signed by: Akash Lester M.D. 06/26/2022 1:15 PM Code Status & VTE Plan Code Status Full Code. Supervising Physician Co-Signing Physician Notes Patient seen and examined, chart reviewed, case discussed with Minna Fuller PA-C and I agree with the assessment and plan as above except as otherwise noted Labs and images reviewed Malik is a 72-year-old male with a past medical history of partial colon resection 2/2 diverticulitis and no prior history of bowel obstruction who presented with 2 days of mild abdominal pain, nausea, vomiting, abdominal distention. CT A/P with distended loops of bowel concerning for ileus versus low-grade/developing SBO. Patient is uncomfortable with increasing belching/hiccuping on exam. He has had small bowel movements and flatus. Is not able to tolerate p.o. due to nausea/vomiting. Recommended for admission to medical service due to comorbidities, has a history of GERD/hyperlipidemia. Neurosurgery consulted by ER and on admission. Patient is made n.p.o., continued on clears, NGT deferred as patient was having flatus and some bowel movements but if clinically worsens this should be placed. At bedside he is nondistressed, hiccuping, lungs are clear, heart is regular, abdomen is softly distended and tympanitic. Bowel sounds are present but decreased. Agree with conservative medical management as above, continue to follow for progression. Did discuss possibility of adhesions and progression to complete bowel obstruction with patient, no additional questions or concerns at time of admission. PG Care Time/CCT Total # of Minutes Spent Total Time Spent with Patient: Total time spent is greater than 50% in coordination of care (as documented) at patient's floor/unit and/or counseling patient: Coding Level of Care Code 12964 INT INP/OBS CARE 1/40MIN Diagnoses SBO (small bowel obstruction) K56.609 Hyperlipidemia E78.5 GERD (gastroesophageal reflux disease) K21.9 BPH (benign prostatic hyperplasia) N40.0
[2022-06-26 17:01] LABS: Appearance Urine Clear (Clear); Bacteria Urine Automated Negative (Negative); Bilirubin Urine Negative (Negative); Blood Urine Negative (Negative); Color Urine Dark Yellow; Epithelial Cell Urine Auto 20-30 /lpf (0-5); Glucose Urine UA Negative (Negative); Ketones Urine Negative (Negative); Leukocyte Esterase Urine Negative (Negative); Nitrite Urine Negative (Negative); Protein Urine Trace (Negative); RBC Urine Automated 0-4 /hpf (0-4); Urobilinogen Urine Negative (Negative)
[2022-06-26 17:05] LABS: Specific Gravity Urine >= 1.045 (1.000-1.030)
--- NOTE | 2022-06-26 18:53 | Surgery Consultation ---
Date of Consultation June 26, 2022 Assessment & Plan (1) SBO (small bowel obstruction): The patient has been admitted on the hospitalist service. We recommend proceeding as follows: Is unclear if the patient is merely suffering from a gastroenteritis/enteritis or if he has a partial small bowel obstruction. I did discuss with the patient that if he did have a partial small bowel obstruction it is likely on the basis of adhesions from prior surgery. Would recommend making the patient n.p.o. Implement IV fluids for hydration Follow serial labs Provide analgesics Provide antiemetics The patient notes that his nausea and vomiting had improved since yesterday but he did have one episode approximately 15 minutes prior to my interview with the patient. He does note that he is passing flatus and had a bowel movement earlier today as well. I did discuss with him the possibility of placing an NG tube for decompression of his GI tract. At the present time the patient wishes to hold off on this modality to see if his symptoms continue to improve. I did discuss with the patient that if he has clinical deterioration such as if he has worsening abdominal pain or worsening abdominal distention or continued nausea and vomiting we will need to revisit the modality of an NG tube and he is agreeable to this Additional recommendations be forthcoming based on his clinical course as it unfolds Remainder of plan as directed by primary service Supervising Physician Co-Signing Physician Notes I personally saw and evaluated the patient with Williams Phillips PA-C and agree with the assessment and plan. 72-year-old male with partial small bowel obstruction He is being admitted to the medical service Keep n.p.o., IV fluids, NG tube placement if needed No plans for surgical intervention at this time History of Present Illness Reason for Consultation: Small bowel obstruction History of Present Illness This is a 72-year-old male who presented to the emergency department secondary to ongoing abdominal pain along with nausea and vomiting for approximate 2 to 3 days. Patient says prior to this beginning he was feeling well in his usual state of health. He does note approximate 2 to 3 days ago he developed some just generalized abdominal pain along with nausea and vomiting. He denies any diarrhea and he also denies any fevers, shakes, or chills. Patient says that yesterday he had approximately 15 episodes of emesis. He did notice slight improvement today but his symptoms not completely resolved prompting his visit to the emergency department. He notes that he did have a normal bowel movement today and he has been passing flatus. He did not have any emesis today until approximately 15 minutes prior to my arrival at the bedside. I question the patient on previous surgeries and he undergo an appendectomy along with a partial colectomy secondary to diverticulitis in 1990. He also underwent a right inguinal hernia repair. Since arrival to the hospital the patient has had labs and imaging which I independently reviewed. CT scan of the abdomen pelvis utilizing IV contrast was performed. This showed the patient had multiple distended loops of small bowel were noted with a gradual transition to a nondistended ileum. The interpreting radiologist felt that this was compatible with either an ileus or a low-grade small bowel obstruction. There is no evidence of bowel perforation or necrosis. Diverticulosis without evidence of diverticulitis was noted. Labs include a CBC her white blood cell count was 13.7. Hemoglobin, hematocrit, platelet count were all within normal range. Chemistry profile showed sodium, potassium, and creatinine were normal. There is a slight elevation of his BUN at 24. There is no elevation of patient's lactate which was within normal range at 0.8. LFTs were nonelevated. Lipase was nonelevated. Urinalysis was performed that was not indicative of infection. A COVID test was noted be negative. Since arrival to the emergency department patient has received approximately 2 L of normal saline solution along with 4 mg of Zofran. At the time of my interview the patient was resting comfortably in bed and he was in no distress. Allergies Allergy/AdvReac Type Severity Reaction Status Date / Time No Known Allergies Allergy Verified 06/26/22 16:21 Home Medications Medication Instructions Recorded Confirmed Type acidophilus 100 million 1 cap PO QAM 10/10/21 06/26/22 History cell-pectin, citrus 10 mg capsule atorvastatin 20 mg tablet 20 mg PO DAILY 10/10/21 06/26/22 History azelastine 205.5 mcg (0.15 %) 2 spray intranasal BID PRN 10/10/21 06/26/22 History nasal spray Congestion dicyclomine 10 mg capsule 10 mg PO QID PRN Abdominal Pain 10/10/21 06/26/22 History finasteride 5 mg tablet 5 mg PO QAM 10/10/21 06/26/22 History s-adenosylmethionine 400 mg tablet 400 mg PO QAM 10/10/21 06/26/22 History (Donavan-E) cholecalciferol (vitamin D3) 25 0 mcg PO DAILY 06/26/22 06/26/22 History mcg (1,000 unit) tablet (Vitamin D3) glucosamine sulfate 1,000 mg 1,000 mg PO DAILY 06/26/22 06/26/22 History capsule omeprazole 20 mg capsule,delayed 20 mg PO BID 06/26/22 06/26/22 History release terazosin 5 mg capsule 5 mg PO QAM 06/26/22 06/26/22 History vitamin E 268 mg (400 unit) capsule 268 mg PO DAILY 06/26/22 06/26/22 History Patient History Medical History BPH (benign prostatic hyperplasia) Chronic bronchitis STATES YEARS AGO; NO ISSUES IN YEARS GERD (gastroesophageal reflux disease) Hyperlipidemia Osteoarthritis HIPS Rotator cuff injury RIGHT Surgical History History of left cataract surgery S/P appendectomy S/P colon resection DURING APPY SURGEON REMOVED SOMETHING SUSPICIOUS IN COLON S/P colonoscopy S/P inguinal hernia repair RIGHT Status post tonsillectomy Social History Smoking Status: Never smoker Second Hand Exposure: No; Hx Alcohol Use: Yes Alcohol type: beer, wine and hard liquor Hx Substance Use: No Preferred Language: Italian Communication Ability: Effective Lithographic Artist Required: No Beliefs That Will Affect Care: None Current Living Situation: Spouse Other Information That Helps Us Care for You: No Feels Safe at Home: Yes Safety Concerns: Feels Safe At This Time Assistive Devices: None Review of Systems Constitutional: no fever and no chills Eyes: no eye pain Ear, Nose, Mouth, Throat: no ear pain Respiratory: no cough and no dyspnea Cardiovascular: no chest pain Gastrointestinal: as per Subjective / HPI Genitourinary: no dysuria Musculoskeletal: no back pain Integumentary: no rash Neurologic: no localized weakness Physical Exam Constitutional: WD/WN, vitals as above Eyes: no conjunctival abnormality ENMT: Ears: no hearing impairment and no external ear abnormality Mouth: no oropharynx abnormality Neck: trachea midline Respiratory: normal respiratory effort; no respiratory distress and no labored breathing Cardiovascular: Rate/Rhythm: regular rate and regular rhythm Vessels: dorsalis pedis pulses present Gastrointestinal (Abdomen): Abdomen is noted to be mildly distended. Bowel sounds are hypoactive. Patient had a well-healed midline incision. I did not appreciate any hernias. There is no rebound tenderness or guarding. The patient only had slight tenderness to palpation in a generalized fashion. His abdomen was slightly tympanic to percussion. Musculoskeletal: No calf tenderness Skin: no rashes Neurologic: moves all extremities Psychiatric: A+Ox3, euthymic affect Results & Data ([facility]) Vital Signs (Past 12 Hours) Vital Signs Temp Pulse Pulse Resp BP BP Pulse Ox 06/26/22 17:26 99 H 16 165/85 H 92 06/26/22 15:07 66 20 137/88 94 06/26/22 13:55 66 20 144/86 H 94 06/26/22 12:48 72 20 147/85 H 95 06/26/22 10:59 06/26/22 10:09 36.1 C L 67 18 136/88 95 O2 Del Method 06/26/22 17:26 06/26/22 15:07 Room Air 06/26/22 13:55 Room Air 06/26/22 12:48 Room Air 06/26/22 10:59 Room Air 06/26/22 10:09 PG Care Time/CCT Total # of Minutes Spent Total Time Spent with Patient: Total time spent is greater than 50% in coordination of care (as documented) at patient's floor/unit and/or counseling patient: Coding Level of Care Code 31656 INT INP/OBS CARE 3/75MIN Diagnoses SBO (small bowel obstruction) K56.609
[2022-06-26] MEDS ORDERED: ONDANSETRON INJ 2 MG/ML 2 ML VIAL IV PRN (19:18)
[2022-06-26] MEDS: LACTATED RINGER'S 1,000 ML IV SCH (20:44)
[2022-06-26] MEDS ORDERED: Nursing to Pharmacy Communication SCH (22:15)
[2022-06-27] MEDS: LACTATED RINGER'S 1,000 ML IV SCH (05:30)
[2022-06-27 09:20] LABS: Basophils # (auto) 0.03 K/uL (0-0.2); Basophils % (auto) 0.3 %; Eosinophils # (auto) 0.19 K/uL (0-0.50); Eosinophils % (auto) 1.8 %; Hematocrit (blood only) 38.4 % (40.1-51.0); Immature Granulocytes # (auto) 0.04 K/uL (0.00-0.02); Immature Granulocytes % (auto) 0.4 %; Lymphocytes # (auto) 1.64 K/uL (1.2-3.4); Lymphocytes % (auto) 15.9 %; Mean Corpuscular Hemoglobin 31.8 pg (25.0-34.0); Mean Corpuscular Hgb Conc 33.9 g/dL (32.0-36.0); Mean Corpuscular Volume 93.9 fL (80.0-100.0); Mean Platelet Volume 11.6 fL (9.4-12.4); Monocytes # (auto) 0.92 K/uL (0.24-0.82); Monocytes % (auto) 8.9 %; Neutrophils # (auto) 7.48 K/uL (1.4-6.5); Neutrophils % (auto) 72.7 %; Platelet Count 145 K/uL (130-400); RDW Coefficient of Variation 11.3 % (11.5-14.5); RDW Standard Deviation 38.2 fL (36.4-46.3); Red Blood Count 4.09 M/uL (4.63-6.08)
[2022-06-27 09:43] LABS: BUN Creatinine Ratio 22.7 (10-20); Calcium 7.9 mg/dl (8.5-10.1); Creatinine Clr Calc Pharmacy 66.6 ml/min; Est GFR (Non-African American) 77.7 ml/min; Magnesium 1.9 mg/dl (1.7-2.4); Potassium 3.6 mmol/L (3.5-5.1)
--- NOTE | 2022-06-27 10:52 | Surgery Progress Note ---
Date of Service June 27, 2022 Assessment & Plan (1) SBO (small bowel obstruction): Plan: Patient here with concern for SBO He is feeling improvement in his symptoms. Has had multiple BMs overnight. no n/v Will advance to clear liquids, pending toleration continue to advance as tolerates to low fiber No plans for surgical intervention Admission and Anticipated Discharge Date Admission Date: June 26, 2022 Supervising Physician Co-Signing Physician Notes I personally saw and evaluated the patient with Aggie Barakat PA-C and agree with the assessment and plan. 72-year-old male with partial small bowel obstruction He has had multiple bowel movements and has no nausea Can advance diet as tolerated and discharge the patient if he continues to tolerate a diet and has return of bowel function Subjective Patient reports feeling better. Passing BMs and gas. No nausea/vomiting since yesterday. Pain improving. Requesting to be discharged Physical Exam Physical Exam: awake/alert Gastrointestinal (Abdomen): Percussion/Palpation: abdomen soft; abdomen nontender Results & Data ([facility]) Vital Signs (Past 12 Hours) Vital Signs Temp Pulse Resp BP Pulse Ox O2 Del Method 06/27/22 07:39 36.9 C 57 L 16 116/71 92 Room Air PG Care Time/CCT Total # of Minutes Spent Total Time Spent with Patient: Total time spent is greater than 50% in coordination of care (as documented) at patient's floor/unit and/or counseling patient: Coding Level of Care Code 98372 SUB INP/OBS CARE 07/02MIN Diagnoses SBO (small bowel obstruction) K56.609
[2022-06-27] MEDS ORDERED: PANTOprazole 40 MG in SYRINGE 0 ML IV SCH (11:00)
--- NOTE | 2022-06-27 11:33 | XRay Report ---
KUB HISTORY: Possible small bowel obstruction. Abdominal distention. COMPARISON: Abdomen and pelvis CT 06/26/2022. KUB 03/13/2022. FINDINGS: Multiple mildly dilated gas-filled loops of small bowel are again seen throughout the abdom en. There is gas within the nondistended colon. This is similar to the prior study. No renal calculi . No ureteral calculi. Calcifications in the deep pelvis likely represent phleboliths. No pneumoperit oneum or pneumatosis. IMPRESSION: No significant change in multiple mildly dilated gas-filled loops of small bowel seen throughout the abdomen. This could represent an ileus versus partial small bowel obstruction. ACT 112: Negative or not required by law. Electronically signed by: Ronan Berumen M.D. 06/27/2022 11:32 AM
--- NOTE | 2022-06-27 12:26 | Discharge Summary ---
Date of Service June 27, 2022 Admission HPI Per Admitting Provider Malik Peck is a 72-year-old male with past medical history significant for hyperlipidemia, GERD, osteoarthritis, BPH, and partial colectomy in 2/2 diverticulitis who is presenting today with abdominal pain. He was at his GI doctor's office today to be seen for 2 days of mid abdominal pain associate with nausea and vomiting. He feels his abdomen is distended. He has been having daily bowel movements, normal in appearance for him without melena or hematochezia. They are formed. He has vomiting has been better since this morning and he was able to eat a small amount of Cheerios without regurgitation or vomiting. He has been afebrile. His biggest complaint at this point is nausea. Given concern for possible bowel obstruction and dehydration, he was sent to the ED for further evaluation. He has a history of rectal prolapse surgery within the past 2 years as well as a colectomy in the for diverticulitis. On presentation, vital signs within normal limits and stable. Labs notable for a white count of 13 with left shift. Lactate pending. There are no electrolyte abnormalities, his renal function is at baseline, without elevated LFTs. Lipase 15. CT A/P shows multiple distended loops of bowel seen with a gradual distal transition to an under distended ileum, findings compatible with ileus versus low-grade small bowel obstruction. There is no evidence of bowel perforation or necrosis seen. There is diverticulosis without diverticulitis, and a stable 5 mm pleural-based lung nodule in the right lower lobe. Principal Diagnosis Partial small bowel obstruction Discharge Exam General-alert and oriented x3, no fevers, no chills HEENT-head atraumatic and normocephalic, pupils equal and reactive to light, extraocular muscles intact Neck-no lymphadenopathy or thyromegaly, trachea midline Chest-clear to auscultation percussion. No rales wheezing or rhonchi Cardiac-regular rate and rhythm, normal S1 and S2 Abdomen-normal bowel sounds, nontender, no hepatosplenomegaly Extremities-no cyanosis, clubbing, or edema Neuro-cranial nerves II through XII intact, motor and sensory function within normal limits, strength symmetrical , no focal deficits Psych-normal affect, normal mood Discharge Data Allergies Allergy/AdvReac Type Severity Reaction Status Date / Time No Known Allergies Allergy Verified 06/26/22 16:21 Consultations 06/26/22 13:57 Consult General Surgery Routine 06/26/22 14:08 ED Decision to Admit Stat 06/26/22 19:18 Consult General Surgery Routine Ordered Studies 06/26/22 10:27 CT abd pelvis IV con only Stat Hospital Course (1) SBO (small bowel obstruction): Most likely partial. Now resolved. This could also have possibly been simply a viral gastroenteritis. Nausea and vomiting has resolved. Abdomen is soft with active bowel sounds and nontender. KUB x-ray reveals no changes today. He has been started on a clear liquid diet and he will advance as tolerated. (2) Hyperlipidemia: Statin therapy was held on admission. Will restart at discharge. (3) GERD (gastroesophageal reflux disease): IV Protonix daily while hospitalized (4) BPH (benign prostatic hyperplasia): Resume terazosin, finasteride at discharge Plan Discharge to home today, June 27. He will follow-up with his primary care provider. Total Time Total Time Spent Total Time Spent (In Minutes): 35 minutes Discharge Plan Discharge Items Patient Disposition: Home - Self-Care Reason For Visit: SBO Discharge Diagnosis: Suspected partial small bowel obstruction Activity: Resume your previous activity Non-emergency contact: Primary Care Provider Call non-emergency contact if: your symptoms worsen Follow-up/Referrals: Ashvin Hu MD [Primary Care Provider] - Diet: Regular Addtl Attending Provider Instructions: No new medications Pending Studies at Discharge: No Stand-Alone Forms: My Gallery [employer], Smoking Cessation Medications and DC Order Prescriptions: Continued atorvastatin 20 mg Tablet 20 mg PO DAILY dicyclomine 10 mg Capsule 10 mg PO QID PRN (Reason: Abdominal Pain) finasteride 5 mg Tablet 5 mg PO QAM Donavan-E 400 mg Tablet 400 mg PO QAM azelastine 205.5 mcg (0.15 %) [place],Non-Aerosol 2 spray INTRANASAL BID PRN (Reason: Congestion) acidophilus-pectin, citrus 100 million cell-10 mg Capsule 1 cap PO QAM omeprazole 20 mg capsule,delayed release(DR/EC) 20 mg PO BID terazosin 5 mg capsule 5 mg PO QAM vitamin E [Vitamin E-400] 268 mg (400 unit) Capsule 268 mg PO DAILY cholecalciferol (vitamin D3) [Vitamin D3] 25 mcg (1,000 unit) Tablet 0 mcg PO DAILY glucosamine sulfate 1,000 mg Capsule 1,000 mg PO DAILY Rx Instructions: administer with a meal Discharge Orders: Discharge Order (Routine); Ordered 06/27/22 Ordered By: Osmar Hoang Admission Data Admit Date/Time: 06/26/22 14:11 Attending Provider: Osmar Hoang Admit Provider: Matt Timmons Primary Care Provider: Ashvin Hu Other Providers: Fitz Hernandez ; Matt Timmons Coding Level of Care Code HOSP INP/OBS DISCH >30 MIN Diagnoses SBO (small bowel obstruction) K56.609 Hyperlipidemia E78.5 GERD (gastroesophageal reflux disease) K21.9 BPH (benign prostatic hyperplasia) N40.0
== END 2022-06-27 14:30 | disposition home or self-care (01) | DRG 390 ==
LOC: ED 10:02 → EDINP 14:11 → SUATTDRO 14:11 → 3W 19:11
DX: E78.5 Hyperlipidemia, unspecified; A08.4 Viral intestinal infection, unspecified; M16.0 Bilateral primary osteoarthritis of hip; K21.9 Gastro-esophageal reflux disease without esophagitis; N40.0 Benign prostatic hyperplasia without lower urinary tract symptoms; K57.90 Diverticulosis of intestine, part unspecified, without perforation or abscess without bleeding; K56.51 Intestinal adhesions [bands], with partial obstruction

== ENCOUNTER 2023-07-03 15:03 | Observation (INO) ==
--- NOTE | 2023-07-03 15:18 | ED Triage Note ---
Date of Service July 03, 2023 Provider in Triage Author: Esdras Longoria History of Present Illness This patient was briefly evaluated while in triage. An abbreviated physical exam was performed. This patient is a 73-year-old Male who presents to the ED for evaluation of nausea, vomiting and inability keep anything down since yesterday afternoon. Patient has not had any diarrhea. He has had chills. Patient reports abdominal discomfort, rating his discomfort an 8 out of 10. Patient has had a prior history of small bowel obstruction, with his last episode approximately 2 years ago. Patient has had a prior history of colectomy for concerning lesion. Physical Exam CONSTITUTIONAL: Healthy and well nourished. HEENT: No scleral icterus or conjunctival injection. Mucous membranes are dry. RESPIRATORY: Clear to auscultation bilaterally with no wheezing, crackles, rhonchi or stridor. CARDIOVASCULAR: Regular rate and rhythm with no murmurs, rubs or gallops. GASTROINTESTINAL: Bowel sounds present in all quadrants. Patient has diffuse abdominal tenderness to palpation. MUSCULOSKELETAL: Full range of motion of all joints without discomfort. INTEGUMENTARY: No rash or other significant dermatologic conditions noted. HEMATOLOGIC: No ecchymosis or petechiae. PSYCHIATRIC: Positive affect. NEUROLOGIC: No focal neurologic deficits noted. Initial orders for labs and / or imaging were placed and patient was placed in the waiting area until a bed is available. Please see further documentation for the full ED course.
[2023-07-03] MEDS: ONDANSETRON INJ 2 MG/ML 2 ML VIAL IV STA (16:36)
[2023-07-03 16:48] LABS: Basophils # (auto) 0.02 K/uL (0.00-0.20); Basophils % (auto) 0.1 %; Eosinophils # (auto) 0.01 K/uL (0.00-0.50); Eosinophils % (auto) 0.1 %; Hematocrit (blood only) 49.7 % (42.0-52.0); Hemoglobin 17.3 g/dl (14.0-18.0); Immature Granulocytes # (auto) 0.06 K/uL (0.01-0.20); Immature Granulocytes % (auto) 0.4 %; Lymphocytes # (auto) 1.24 K/uL (1.20-3.40); Lymphocytes % (auto) 8.7 %; Mean Corpuscular Hemoglobin 31.3 pg (25.0-34.0); Mean Corpuscular Hgb Conc 34.8 g/dL (32.0-36.0); Mean Corpuscular Volume 89.9 fL (80.0-100.0); Mean Platelet Volume 11.3 fL (9.4-12.4); Monocytes # (auto) 0.61 K/uL (0.11-0.59); Monocytes % (auto) 4.3 %; Neutrophils # (auto) 12.38 K/uL (1.40-6.50); Neutrophils % (auto) 86.4 %; Platelet Count 172 K/uL (130-400); RDW Coefficient of Variation 11.5 % (11.5-14.5); RDW Standard Deviation 37.8 fL (36.4-46.3); Red Blood Count 5.53 M/uL (4.70-6.10); White Blood Count 14.32 K/ul (4.8-10.8)
[2023-07-03 17:01] LABS: Calcium 10.5 mg/dl (8.6-10.3)
[2023-07-03 17:07] LABS: Albumin Globulin Ratio 1.8 (0.9-2); BUN Creatinine Ratio 22.1 (10-20); Creatinine Clr Calc Pharmacy 61.2 ml/min; Est GFR (African American) 82.2 ml/min; Est GFR (Non-African American) 70.9 ml/min; Globulin 2.8 gm/dl (2.5-4.0); Total Protein 7.8 gm/dl (6.0-8.3)
[2023-07-03] MEDS: OPTIRAY 320 500ml IV ONE (18:49)
[2023-07-03] MEDS: METOCLOPRAMIDE HCL INJ 5 MG/ML 2 ML VIAL IV STA (19:39)
[2023-07-03] MEDS: SODIUM CHLORIDE 0.9% 1,000 ML IV ONE (19:54)
--- NOTE | 2023-07-03 19:59 | CT Scan Report ---
Exam(s): CT ABDOMEN + PELVIS With Contrast IV Amt: 80 ml optiray 320 EXAM: CT Abdomen and Pelvis With Intravenous Contrast CLINICAL HISTORY: Reason for exam: Abd pain, h/o SBO. TECHNIQUE: Axial computed tomography images of the abdomen and pelvis with intravenous contrast. CTDI is 24.71 mGy and DLP is 1230.92 mGy-cm. Automated exposure control was utilized for the study. A dose lowering technique was utilized adhering to the principles of ALARA. CONTRAST: Patient received 80 ml optiray 320 of IV contrast COMPARISON: 06/26/2022. FINDINGS: Lung bases: Mild bilateral lower lobe and right middle lobe atelectasis . Heart: Unremarkable. No cardiomegaly. No significant pericardial effusion. Normal cardiac size. ABDOMEN: Liver: Unremarkable. No mass. Gallbladder and bile ducts: Unremarkable. No calcified stones. No ductal dilation. Pancreas: Unremarkable. No mass. No ductal dilation. Spleen: Unremarkable. No splenomegaly. Adrenals: Unremarkable. No mass. Kidneys and ureters: Unremarkable. No solid mass. No hydronephrosis. Stomach and bowel: Distention of several left upper quadrant small bowel loops with air-fluid level reaching 3.3 cm in maximum dimension with gastric distention, combination of findings concerning for small bowel obstruction, zone of transition likely at the level of the right lower quadrant/distal ileum and best seen on images 64 through 57, series 2 and coronal images 48 through 53, series 300. Diverticulosis with no signs of diverticulitis. The colon is decompressed. PELVIS: Appendix: No findings to suggest acute appendicitis. Bladder: Unremarkable. No mass. Reproductive: Unremarkable as visualized. ABDOMEN and PELVIS: Intraperitoneal space: Unremarkable. No free air. No significant fluid collection. Bones/joints: Multilevel degenerative disease of the spine, more significant at L5-S1. No acute fracture. No dislocation. Soft tissues: Unremarkable. Vasculature: Mild data atherosclerotic disease of aorta with no aneurysm or dissection. Lymph nodes: Unremarkable. No enlarged lymph nodes. IMPRESSION: 1. Mild bowel obstruction with zone of transition likely within the right lower quadrant/mid distal ileum. Diverticulosis with no signs of diverticulitis with decompression of the colon. 2. Normal abdominal viscera. Electronically signed by: Bernie Mark MD 07/03/23 19:58 PM
--- NOTE | 2023-07-03 20:57 | History & Physical Report ---
Date of Service July 03, 2023 Assessment & Plan (1) SBO (small bowel obstruction): (2) S/P colon resection: (3) GERD (gastroesophageal reflux disease): (4) BPH loc w urin obs/LUTS: (5) Hyperlipidemia: Plan Recurrent small bowel obstruction/history of colon resection- CT scan abdomen pelvis shows small bowel obstruction with transition point right lower quadrant/mid distal ileitis Most recent admission from 06/26-06/27/2022 for SBO, resolved spontaneously without NG tube Hold off on NG tube for now N.p.o. Zofran 4 mg IV every 6 hours as needed Pantoprazole 40 mg IV daily Acetaminophen 1 g IV every 8 hours as needed for mild pain or fever Toradol 30 mg IV every 6 hours as needed for moderate pain NSS + KCl 20 mill equivalents at 100 mL/h General surgery has been consulted BPH with LUTS- While n.p.o., temporarily hold terazosin and finasteride Monitor I's and O's and for possible urinary retention GERD- Changing omeprazole NPO to pantoprazole IV History of Present Illness Chief Complaint: The patient presents to the emergency department with 1-1/2 to 2 days of worsening abdominal pain, nausea, vomiting similar to previous occurrences of small bowel obstruction. Primary Care Provider: Ashvin Hu MD The patient is a 73-year-old male with a past medical history including BPH with LUTS, SBO, hyperlipidemia, GERD, and previous colon resection. He presents to the emergency department with symptoms of progressively worsening abdominal pain, nausea, vomiting over the past 1 and half to 2 days. He reports his last bowel movement was yesterday evening. His most recent hospitalization for SBO was from 06/26-06/27/2022, which resolved spontaneously with conservative treatment. 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 He admits his water intake is not perfect, but denies any changes in dietary pattern otherwise. He reports ongoing issues with urination due to his BPH, and attributes some difficulty urination now due to decreased oral intake Allergies Allergy/AdvReac Type Severity Reaction Status Date / Time No Known Allergies Allergy Verified 07/03/23 20:04 Home Medications Medication Instructions Recorded Confirmed Type acidophilus 100 million 1 cap PO QAM 10/10/21 07/03/23 History cell-pectin, citrus 10 mg capsule atorvastatin 20 mg tablet 20 mg PO DAILY 10/10/21 07/03/23 History azelastine 205.5 mcg (0.15 %) 2 spray intranasal BID PRN 10/10/21 07/03/23 History nasal spray Congestion dicyclomine 10 mg capsule 10 mg PO QID PRN Abdominal Pain 10/10/21 07/03/23 History finasteride 5 mg tablet 5 mg PO QAM 10/10/21 07/03/23 History s-adenosylmethionine 400 mg tablet 400 mg PO QAM 10/10/21 07/03/23 History (ELBA-e) cholecalciferol (vitamin D3) 25 0 mcg PO DAILY 06/26/22 07/03/23 History mcg (1,000 unit) tablet (Vitamin D3) glucosamine sulfate 1,000 mg 1,000 mg PO DAILY 06/26/22 07/03/23 History capsule omeprazole 20 mg capsule,delayed 20 mg PO BID 06/26/22 07/03/23 History release terazosin 5 mg capsule 5 mg PO QAM 06/26/22 07/03/23 History vitamin E 268 mg (400 unit) capsule 268 mg PO DAILY 06/26/22 07/03/23 History Past Med/Surg History Medical History (Updated 07/03/23 @ 22:56 by Anthony Garcia MD) GERD (gastroesophageal reflux disease) Hyperlipidemia BPH (benign prostatic hyperplasia) Rotator cuff injury RIGHT Osteoarthritis HIPS Chronic bronchitis STATES YEARS AGO; NO ISSUES IN YEARS Surgical History (Updated 07/03/23 @ 22:56 by Anthony Garcia MD) History of left cataract surgery S/P colonoscopy Status post tonsillectomy S/P colon resection DURING APPY SURGEON REMOVED SOMETHING SUSPICIOUS IN COLON S/P appendectomy S/P inguinal hernia repair RIGHT Family History (Updated 09/26/22 @ 10:28 by Oz Howe) Grandfather Hypertension Social History Smoking Status: Never smoker Second Hand Exposure: No; Do You Dip or Chew Tobacco: No; Hx Alcohol Use: Yes Alcohol type: beer, wine and hard liquor Hx Substance Use: No Preferred Language: Vietnamese Communication Ability: Effective Digital Art Director Required: No Beliefs That Will Affect Care: None Current Living Situation: Spouse Feels Safe at Home: Yes Assistive Devices: None Review of Systems Review of Systems: The patient denies chest pain, palpitations, shortness of breath, dyspnea on exertion, cough, lower extremity swelling, sore throat, fevers, chills, sweats, weight change, fatigue, blood in urine or stool, dysuria, urinary frequency or urgency, lightheadedness, dizziness, headache, memory loss, loss of consciousness, rash, abnormal bruising or bleeding, imbalance, focal or generalized weakness, numbness or tingling in arms or legs, generalized arthralgias or myalgias, back or neck pain, or night sweats. The review of systems is otherwise negative other than for that already noted above, and at least 10 systems have been reviewed. Physical Exam Physical Exam: The patient is awake, alert and oriented 3, well developed and well nourished, normocephalic and atraumatic, sitting upright in bed and in no acute distress. HEENT--PERRL, EOMI, mucous membranes and oropharynx mildly dry. Neck--supple. No JVD. No bruits. Thyroid normal, trachea midline, no adenopathy. Heart--normal S1 and S2. No murmurs, rubs or gallops. Lungs--clear bilaterally, no respiratory distress, no accessory muscle use. Abdomen--normal bowel sounds and soft. Mild generalized tenderness. Mildly distended. Extremities--no cyanosis or clubbing. No edema. Dermatologic--normal skin turgor, normal color, no abnormal lymph nodes, no rash. Neurologic--cranial nerves II through XII grossly intact. Rheumatologic--normal range of motion. Psychiatric--normal affect. Results & Data Results & Data Vital Signs (Past 12 Hours) Vital Signs Temp Pulse Pulse Resp BP BP Pulse Ox 07/03/23 19:45 80 18 129/80 95 07/03/23 15:14 37 C 82 14 148/87 H 96 O2 Del Method 07/03/23 19:45 Room Air 07/03/23 15:14 Room Air Laboratory Results Laboratory Results WBC 14.32 K/ul (4.8-10.8) H 07/03/23 16:37 RBC 5.53 M/uL (4.70-6.10) 07/03/23 16:37 Hgb 17.3 g/dl (14.0-18.0) 07/03/23 16:37 Hct 49.7 % (42.0-52.0) 07/03/23 16:37 MCV 89.9 fL (80.0-100.0) 07/03/23 16:37 MCH 31.3 pg (25.0-34.0) 07/03/23 16:37 MCHC 34.8 g/dL (32.0-36.0) 07/03/23 16:37 RDW Std Deviation 37.8 fL (36.4-46.3) 07/03/23 16:37 RDW Coeff of [place] 11.5 % (11.5-14.5) 07/03/23 16:37 Plt Count 172 K/uL (130-400) 07/03/23 16:37 MPV 11.3 fL (9.4-12.4) 07/03/23 16:37 Immature Gran % (Auto) 0.4 % 07/03/23 16:37 Neut % (Auto) 86.4 % 07/03/23 16:37 Lymph % (Auto) 8.7 % 07/03/23 16:37 [place] % (Auto) 4.3 % 07/03/23 16:37 Eos % (Auto) 0.1 % 07/03/23 16:37 Baso % (Auto) 0.1 % 07/03/23 16:37 Neut # (Auto) 12.38 K/uL (1.40-6.50) H 07/03/23 16:37 Lymph # (Auto) 1.24 K/uL (1.20-3.40) 07/03/23 16:37 [place] # (Auto) 0.61 K/uL (0.11-0.59) H 07/03/23 16:37 Eos # (Auto) 0.01 K/uL (0.00-0.50) 07/03/23 16:37 Baso # (Auto) 0.02 K/uL (0.00-0.20) 07/03/23 16:37 Immature Gran # (Auto) 0.06 K/uL (0.01-0.20) 07/03/23 16:37 Sodium 137 mmol/L (136-145) 07/03/23 16:37 Potassium 4.0 mmol/L (3.5-5.1) 07/03/23 16:37 Chloride 99 mmol/L (98-107) 07/03/23 16:37 Carbon Dioxide 29 mmol/L (21-32) 07/03/23 16:37 Anion Gap 9 (3-11) 07/03/23 16:37 BUN 23 mg/dl (6-23) 07/03/23 16:37 Creatinine 1.04 mg/dl (0.6-1.4) 07/03/23 16:37 Est Cr Clr Drug Dosing 61.2 ml/min 07/03/23 16:37 Est GFR ( Amer) 82.2 ml/min 07/03/23 16:37 Est GFR (Non-Af Amer) 70.9 ml/min 07/03/23 16:37 BUN/Creatinine Ratio 22.1 (10-20) H 07/03/23 16:37 Glucose 158 mg/dl (70-99(Fasting)) H 07/03/23 16:37 Calcium 10.5 mg/dl (8.6-10.3) H 07/03/23 16:37 Total Bilirubin 1.0 mg/dl (0.2-1.0) 07/03/23 16:37 AST 24 U/L (13-39) 07/03/23 16:37 ALT 28 U/L (7-52) 07/03/23 16:37 Alkaline Phosphatase 77 U/L (34-104) 07/03/23 16:37 Total Protein 7.8 gm/dl (6.0-8.3) 07/03/23 16:37 Albumin 5.0 gm/dl (3.4-5.0) 07/03/23 16:37 Globulin 2.8 gm/dl (2.5-4.0) 07/03/23 16:37 Albumin/Globulin Ratio 1.8 (0.9-2) 07/03/23 16:37 Lipase 9 U/L (11-82) L 07/03/23 16:37 Urine Color Yellow 07/03/23 21:41 Urine Appearance Clear (Clear) 07/03/23 21:41 Urine pH 5.5 (4.5-7.5) 07/03/23 21:41 Ur Specific [place] > 1.045 (1.000-1.030) H 07/03/23 21:41 Urine Protein Trace (Negative) H 07/03/23 21:41 Urine Glucose (UA) Negative (Negative) 07/03/23 21:41 Urine Ketones Negative (Negative) 07/03/23 21:41 Urine Blood Negative (Negative) 07/03/23 21:41 Urine Nitrite Negative (Negative) 07/03/23 21:41 Urine Bilirubin Negative (Negative) 07/03/23 21:41 Urine Urobilinogen Negative (Negative) 07/03/23 21:41 Ur Leukocyte Esterase Negative (Negative) 07/03/23 21:41 Urine RBC 0-4 /hpf (0-4) 07/03/23 21:41 Urine WBC 0-5 /hpf (0-5) 07/03/23 21:41 Ur Epithelial Cells 0-5 /lpf (0-5) 07/03/23 21:41 Urine Bacteria Negative (Negative) 07/03/23 21:41 Hyaline Casts 0-5 /lpf (0-5) 07/03/23 21:41 SARS-CoV-2, RNA, NAAT NEGATIVE (NEGATIVE) 07/03/23 19:45 Impressions Abdomen/Pelvis CT 07/03/23 15:18 Exam(s): CT ABDOMEN + PELVIS With Contrast IV Amt: 80 ml optiray 320 EXAM: CT Abdomen and Pelvis With Intravenous Contrast CLINICAL HISTORY: Reason for exam: Abd pain, h/o SBO. TECHNIQUE: Axial computed tomography images of the abdomen and pelvis with intravenous contrast. CTDI is 24.71 mGy and DLP is 1230.92 mGy-cm. Automated exposure control was utilized for the study. A dose lowering technique was utilized adhering to the principles of ALARA. CONTRAST: Patient received 80 ml optiray 320 of IV contrast COMPARISON: 06/26/2022. FINDINGS: Lung bases: Mild bilateral lower lobe and right middle lobe atelectasis . Heart: Unremarkable. No cardiomegaly. No significant pericardial effusion. Normal cardiac size. ABDOMEN: Liver: Unremarkable. No mass. Gallbladder and bile ducts: Unremarkable. No calcified stones. No ductal dilation. Pancreas: Unremarkable. No mass. No ductal dilation. Spleen: Unremarkable. No splenomegaly. Adrenals: Unremarkable. No mass. Kidneys and ureters: Unremarkable. No solid mass. No hydronephrosis. Stomach and bowel: Distention of several left upper quadrant small bowel loops with air-fluid level reaching 3.3 cm in maximum dimension with gastric distention, combination of findings concerning for small bowel obstruction, zone of transition likely at the level of the right lower quadrant/distal ileum and best seen on images 64 through 57, series 2 and coronal images 48 through 53, series 300. Diverticulosis with no signs of diverticulitis. The colon is decompressed. PELVIS: Appendix: No findings to suggest acute appendicitis. Bladder: Unremarkable. No mass. Reproductive: Unremarkable as visualized. ABDOMEN and PELVIS: Intraperitoneal space: Unremarkable. No free air. No significant fluid collection. Bones/joints: Multilevel degenerative disease of the spine, more significant at L5-S1. No acute fracture. No dislocation. Soft tissues: Unremarkable. Vasculature: Mild data atherosclerotic disease of aorta with no aneurysm or dissection. Lymph nodes: Unremarkable. No enlarged lymph nodes. IMPRESSION: 1. Mild bowel obstruction with zone of transition likely within the right lower quadrant/mid distal ileum. Diverticulosis with no signs of diverticulitis with decompression of the colon. 2. Normal abdominal viscera. Electronically signed by: Bernie Mark MD 07/03/23 19:58 PM Code Status & VTE Plan Code Status Full code VTE Prophylaxis Plan VTE Prophylaxis will be ordered: Yes PG Care Time/CCT Total # of Minutes Spent Total Time Spent with Patient: Total time spent is greater than 50% in coordination of care (as documented) at patient's floor/unit and/or counseling patient: Coding Level of Care Code 75454 INT INP/OBS CARE 3/75MIN Diagnoses SBO (small bowel obstruction) K56.609 S/P colon resection Z90.49 GERD (gastroesophageal reflux disease) K21.9 BPH loc w urin obs/LUTS N40.1 Hyperlipidemia E78.5
[2023-07-03] MEDS ORDERED: NSS + 20MEQ KCL 20 MEQ/1,000 ML BAG IV SCH (22:17)
[2023-07-03] MEDS ORDERED: ACETAMINOPHEN 1000 MG/100 ML IV IV PRN (22:17)
[2023-07-03] MEDS: NSS + 20MEQ KCL 20 MEQ/1,000 ML BAG IV SCH (22:18)
[2023-07-03 22:29] LABS: Appearance Urine Clear (Clear); Bilirubin Urine Negative (Negative); Blood Urine Negative (Negative); Color Urine Yellow; Glucose Urine UA Negative (Negative); Ketones Urine Negative (Negative); Leukocyte Esterase Urine Negative (Negative); Nitrite Urine Negative (Negative); Protein Urine Trace (Negative); Specific Gravity Urine > 1.045 (1.000-1.030); Urobilinogen Urine Negative (Negative); pH Urine 5.5 (4.5-7.5)
[2023-07-03] MEDS ORDERED: KETOROLAC TROMETHAMINE 15 MG/ML VIAL IV PRN (22:32)
[2023-07-03] MEDS ORDERED: ACETAMINOPHEN 1,000 MG/100 ML VIAL IV PRN (22:33)
[2023-07-03 22:39] LABS: Bacteria Urine Negative (Negative); Epithelial Cell Urine 0-5 /lpf (0-5); Hyaline Casts Urine 0-5 /lpf (0-5); RBC Urine 0-4 /hpf (0-4); WBC Urine 0-5 /hpf (0-5)
--- OUTSIDE RECORDS SUMMARY | 2023-07-03 23:05 | External Medical Summary | Continuity of Care Document ---
Author Name Unknown Organization [facility] [address] [place] [address] [address] [place] [id number] Care Team Providers Care Book Sorter Name Role Phone Ashvin Hu Primary Care Physician [phone] Encounter [facility] [id number] Date(s): 06/10/23 - 06/10/23 [facility] 0 [facility] [address] [facility] [address] [facility], [facility] [address] [place] [address] [phone] Encounter Diagnosis Cough(Discharge Diagnosis) - 06/10/23 Discharge Disposition: Home or Self Care [facility] Phys[facility] Allergies, Adverse Reactions, Alerts No Known Allergies Assessment and Plan Extracted from: Title:Office Visit Note Author:DO Cassidy Audrey Date:06/10/23 Cough Discussed with patient he has post viral cough, no concern for PNA at this time. This will likely linger for a few weeks up to a month, patient advised to use mucinex humidifier hydration, will send in tessalon perrls to help suppress cough at night. Patient understands if he develops new onset SOB fever to contact the office. Immunizations Given and Recorded Vaccine Date Status Refusal Reason RSV Vaccine Unspecified 1 03/17/23 Recorded tetanus/diphtheria/pertuss, acel (Tdap) 09/24/22 R ecorded tetanus/diphtheria/pertuss, acel (Tdap) 07/01/13 G iven pneumococcal 23-valent vaccine 09/24/22 Recorded pneumococcal 23-valent vaccine 03/08/09 Recorded influenza virus vaccine, inactivated 2 02/16/22 Re corded influenza virus vaccine, inactivated 05/03/18 Give n influenza virus vaccine, inactivated 03/08/14 Shakeel rded SARS-CoV-2 (COVID-19) mRNA BNT-162b2 vax 02/01/21 Recorded SARS-CoV-2 (COVID-19) mRNA BNT-162b2 vax 3 08/04/20 Recorded SARS-CoV-2 (COVID-19) mRNA BNT-162b2 vax 4 07/14/20 Recorded zoster vaccine, inactivated 05/02/20 Recorded pneumococcal 13-valent vaccine 07/05/14 Given zoster vaccine live 06/28/12 Given influenza virus vaccine, H1N1 5 04/27/09 Recorded hepatitis A pediatric vaccine 07/09/04 Recorded tetanus toxoid 05/08/03 Recorded 1Result Comment: [facility] 2Result Comment: 0.70mL given at [facility] pharmacy 3Result Comment: [facility] 4Result Comment: [facility] 5Result Comment: 2022-09-30: Historical information-source unspecified Medications atorvastatin 20 mg oral tablet Start: 03/25/23 11:43:00 EDT, 1 tab, PO, qhs, Disp# 30 tab, Refills: 3, Pharmacy: [facility] [id number] Start Date: 03/25/23 Status: Ordered azelastine 137 mcg/inh (0.1%) nasal spray Start: 05/27/22 10:55:00 EST, 2 spray, each nostril, bid, Disp# 3 each, Refills: 3, PRN: as needed for allergy symptoms, [id number] Start Date: 05/27/22 Status: Ordered dicyclomine 10 mg oral capsule Start: 10/25/21 6:50:00 EDT, See Instructions, Disp# 360 cap, Refills: 3, TAKE 1 CAPSULE BY MOUTH FOUR TIMES A DAY NEEDED FOR ABDONIMAL PAIN, Pharmacy: [facility] #[id number] Start Date: 10/25/21 Status: Ordered finasteride 5 mg oral tablet Start: 05/27/23 17:37:00 EST, See Instructions, Disp# 30 tab, Refills: 0, TAKE 1 TABLET BY MOUTH EVERY DAY, Pharmacy: [facility] Start Date: 05/27/23 Status: Ordered glucosamine 500 mg oral tablet Start: 01/21/19 10:28:00 EDT, 3 tab, PO, Daily Start Date: 01/21/19 Status: Ordered omeprazole 20 mg oral delayed release capsule Start: 05/27/23 17:37:00 EST, See Instructions, Disp# 60 cap, Refills: 0, TAKE 1 CAPSULE BY MOUTH TWICE A DAY, Pharmacy: [id number] Start Date: 05/27/23 Status: Ordered Pneumovax 23 injectable solution Start: 09/02/22 16:22:00 EDT, 0.5 mL, IM, ONCE, Disp# 0.5 mL, [id number] Start Date: 09/02/22 Status: Ordered terazosin 5 mg oral capsule Start: 05/27/23 17:36:00 EST, See Instructions, Disp# 30 cap, Refills: 0, TAKE 1 CAPSULE BY MOUTH EVERY DAY, Pharmacy: [facility] [id number] Start Date: 05/27/23 Status: Ordered Tessalon 200 mg oral capsule Start: 06/10/23 10:54:00 EST, 1 cap, PO, tid, Disp# 15 cap, PRN: as needed for cough, [facility]: [id number] Start Date: 06/10/23 Stop Date: 06/15/23 Status: Ordered tetanus/diphth/pertussis (Tdap) adult/adol 5 units-2 units-15.5 mcg/0.5 mL intramuscular suspension Start: 09/02/22 15:58:00 EDT, 0.5 mL, IM, ONCE, Disp# 0.5 mL, [facility]acy: [id number] Start Date: 09/02/22 Status: Ordered turmeric Start: 05/20/21 14:32:00 EST Start Date: 05/20/21 Status: Ordered Tylenol 325 mg oral tablet Start: 05/02/19 12:51:00 EST, 2 tab, PO, q4h, PRN: pain - mild Start Date: 05/02/19 Status: Ordered Vitamin B12 100 mcg oral tablet Start: 01/21/19 10:27:00 EDT, 1 tab, PO, Daily Start Date: 01/21/19 Status: Ordered Vitamin D3 1000 intl units oral capsule Start: 01/21/19 10:28:00 EDT, 1 cap, PO, Daily Start Date: 01/21/19 Status: Ordered Mental Status 06/10/23 Barriers to Learning one year None evide nt Mandatory Health Literacy Documentation Yes Health Literacy Communication Barriers N ever Primary Language Telugu Problem List Condition Confirmation Course Effective Dates Status H ealth Status Informant BPH Confirmed Active Dyslipidemia Confirmed Active Hyperlipidemia Confirmed Active INSOMNIA Confirmed Active Actinic keratoses Confirmed Active Seborrheic keratoses Confirmed Active Allen angioma Confirmed Active Vitiligo Confirmed Active Diagnosis Diagnosis Type Effective Dates Health Status Clini becka Service Informant Cough Discharge Diagnosis 06/10/23 Non-Specified Procedures Procedure Date Related Diagnosis Body Site Status Small bowel series 1 07/10/22 Comp leted Laboratory findings data interpretation 2 06/27/[address] of abdomen and pelvis 3 06/26/22 Completed KUB X-ray 4 06/26/22 Completed CAT scan/enterography 5 03/26/22 C ompleted KUB X-ray 6 03/13/22 Completed Colonoscopy 7, 8 11/26/21 Complete d Esophagogastroduodenoscopy 9 11/26/21 Completed Bone density scan 10 11/25/[address] of abdomen and pelvis 11 10/10/[address] of abdomen w/o contrast 12 08/13/21 Completed Procedure 13 05/02/[address] of chest 14 06/19/17 Completed Repair of inguinal hernia 15, 16 04/21/[address] of chest 17 11/25/[address] of abdomen and pelvis wit h contrast 18 11/14/16 Completed Ultrasound right inguinal 19 11/06/16 Completed Colonoscopy 20 08/10/15 Completed US scan of abdominal aortic aneurysm screening 21 07/23/15 Completed appendectomy Completed CT of abdomen and pelvis 22 Completed plantar wart removal Comp leted Shave biopsy and cauterization of skin Completed T & A Completed varicolectomy Completed wisdom teeth extraction C ompleted 1The small bowel is normal in course and caliber. No evidence for a bowel obstruction. 2Labs during hospitalization CBC Hgb 13 L MCV 93.9 nl CMP CL 113 H, Ca 7.9 L, Mg 1.9 nl, lipase 15 nl, lactate 0.8 nl, 31) Multiple distended loops of bowel are seen with a gradual distal transition to underdistended ileum. Findings are compitalbe with ileus vs low-grade small bowel obstructions. No evidence of bowel perforation or vecrosis is seen. 2) Diverticulitis without diverticulitis. 3) Stable 5 mm pleural-based lung nodule in the right lower lobe 4No significant change in multiple mildly dilated gas-filled loops of small bowel seen throughout the abomen. This could represent an ileus vs parital SBO 5Impression: No acute process within the abdomen or pelvis Colonic and jejunal diverticulosis. No evidence for acute dierticulitis. No small bowel wall thickening identified. 6A patency capsule projects over the right lower quadrant. 7COLO to ileum, ileocolonic anastomosis, 6 mm polyp at 50 cm CS, diverticulosis, submucosal rolling nodule rectum 8Pathology: Duodenum: no significant change. Gastric: Acute erosive gastritits. Gastric antrum: minimal congestion and foveolar huperplasia. Colon Polyp: tubular adenoma. 9EGD erythema duodenal bulb and 2nd duod. 2nd duod bx, multiple erosiins distal body bx, antrum nl bx, 10AP Spine L1-L3 0.1 DualFemur Total Mean 0.5 Z-Score 0.7 111) No definite bowel wall thickening or obstruction. 2) Colonic and jejunal diverticula. No evidence for acute diverticulitis. 3) No hydronephrosis 4) Stable subcentimeter nodules within the right lung base. 121. Focal segment of thickened small bowel within the right midabdomen with adjacent fat stranding. This is consistent with a nonspecific enteritis. This favors an infectious or inflammatory process. 2. No evidence for bowel obstruction. 3. Colonic diverticulosis. No evidence for acute diverticulitis. 4. Stable subcentimeter nodules within the right lower lobe. These are considered to be benign given the long-term stability. 5. Hepatic steatosis. 13Rectal prolapse repair. 141. there is no airspace consolidation or pleural effusions 2. unchanged appearacne of 2 pulmonary nodules at the right lung base measuirng up to 6 mm dating back to the 11/14/[address] conitinued follow up is recommended as per the Fleischner Criteria 3. no new pulmonary noduled are identifed 4. hepatic steatosis and mild splenomegaly 15Right inguinal hernia sac pathology: hernia sac 16The patient tolerated procedure well. 171. There is no airspace consolidation or pleural effusion 2. unchanged appearacne of 2 pulmonary nodules at the right lung base measuring up to 6 mm as compared to the 11/14/[address] These can be follwoed as per the fleischnew criteria. 3. no additional pulmonary nodules are identified 4. Hepatic steatosis. 18There is no acute infectious or inflammatory findings in the abdomen or pelvis. Hepatic steatosis. Moderate diverticulosis of the left colon wihtout CT evidence of acute diverticulois. Although decompressed, the bladder wall appears circumferentially thickened. Correlation with urinalysis will be required. There are 2 pulmonary nodules at the right lung base measuring up to 5 mm. Correlation witha nonemergent chest CT is recommended for further interrogation. Mild splenomegaly. 191. Possible small fat-containing right inguinal hernia 2. 3.2X2.5X1.6 cm cystic abnormality within the right groin wich was compressible. This is indeterminate although does not have suspicious imaging characteristics and could potentially be related to a right inguinal hernia sac which contains fluid. A CT of the pelvis could be obtained for further ev aluation 20COLO to ileal anstomosis at , diverituclosis, repeat colo 10 years 21no evidence for an abdominal aortic aneurysm 22Impression: 1. multiple distended loops of bowel are seen with a gradual distal transition to underdistended ileum. Findings are compatible with ileus versus low-grade small bowel obstruction. No evidence of bowel perforation or necrosis is seen. 2. diverticulosis without diverticulitis 3. Stable 5 mm pleural-based lung nodule in the right lower lobe Vital Signs Most recent to oldest [Reference Range]: 1 Patient Weight 80.2 kg (06/10/23 10:34 AM) Temperature [36.5-37.9 DegC] 36.7 DegC (06/10/23 10:34 AM) Heart Rate 78 bpm (06/10/23 10:34 AM) Respiratory Rate 20 br/min (06/10/23 10:34 AM) Blood Pressure 104/72mmHg (06/10/23 10:34 AM) Cuff Pulse Pressure 32 mmHg (06/10/23 10:34 AM) Social History Social History Type Response Smoking Status Never smoked cigaret keyla Sex Male FCM Outpt Note * MD Joyce, Alexander B: MODIFY MD Cook Mark B: MODIFY Event Display: FCM Outpt Note Authored Date: Chief Complaint coughing, chest congestion x one week History of Present Illness 73yo Male here for concern URI. Got cold from granddaughter. Deep cough. Cold ongoing 1 week, thought it was improving at first, coughing lingering. No worsening symptoms. No home COVID home tests Mild fever at first. Some lung tightness, no N/V. Slight CP.No abd pain. At first used sudafed, not using anything lately UTD on COVID flu and RSV vaccines. No history lung or heart conditions. At one point got chronic bronchitis Physical Exam Vitals & Measurements T:36.7C HR:78(Monitored) RR:20 BP:104/72 SpO2:97% WT:80.2kg WT:80.200kg(Dosing) PHQ2 Data(Data Documented on:06/10/2023 10:32) Emotional health assessment NEGATIVE General: Well appearing age appropriate calm cooperative Heart: RRR, +S1 S2, no murmurs/rubs/gallops Lungs: CTA b/l, no wheezes/rales/rhonchi HEENT: PERRLA, EOMI, normocephalic atraumatic, nares patent b/l, oropharynx moist no erythema, nothyromegaly, no lymphadenopathy Assessment/Plan Cough Discussed with patient he has post viral cough, no concern for PNA at this time. This will likely linger for a few weeks up to a month, patient advised to use mucinex humidifier hydration, will send in tessalon perrls to help suppress cough at night. Patient understands if he develops new onset SOBfever to contact the office. Attestation I reviewed and discussed the history and physical exam findings with the resident physician andagree with the above impression and plan. Problem List/Past Medical History Ongoing Actinic keratoses BPH Allen angioma Dyslipidemia GERD Hyperlipidemia Impaired fasting glucose INSOMNIA Seborrheic keratoses Vitiligo Historical Abdominal bloating with cramps Abdominal pain Colitis Diverticulosis Gastritis History of actinic keratoses History of IBS History of liver disease Hx of cardiac murmur Keratosis seborrheica Low back strain Nausea and vomiting Osteoarthritis of finger Right hip pain Seasonal allergies Shingles Shoulder pain, right Skin tag Small bowel obstruction Well adult exam Procedure/Surgical History Small bowel series (07/10/2022)Laboratory findings data interpretation (06/27/2022)KUB X-ray (06/26/2022)CT of abdomen and pelvis (06/26/2022)CAT scan/enterography (03/26/2022)KUB X-ray (03/13/2022)Esophagogastroduodenoscopy (11/26/2021)Colonoscopy (11/26/2021)Bone density scan (11/25/2021)CT of abdomen and pelvis (10/10/2021)CT of abdomen w/o contrast (08/13/2021)Procedure (05/02/2019)CT of chest (06/19/2017)Repair of inguinal hernia (04/21/2017)CT of chest (11/25/2016)CT of abdomen and pelvis with contrast (11/14/2016)Ultrasound right inguinal (11/06/2016)Colonoscopy (08/10/2015)US scan of abdominal aortic aneurysm screening ( 016)Shave biopsy and cauterization of skinvaricolectomyplantar wart removalwisdom teethextraction T & A appendectomy CT of abdomen and pelvis Medications acetaminophen(Tylenol 325 mg oral tablet), 650 mg= 2 tab, PO, q4h, PRN atorvastatin(atorvastatin 20 mg oral tablet), 1 tab, PO, qhs azelastine nasal(azelastine 137 mcg/inh (0.1%) nasal spray), 2 spray, each nostril, bid, PRN, 3 refills benzonatate(Tessalon 200 mg oral capsule), 200 mg= 1 cap, PO, tid, PRN cholecalciferol(Vitamin D3 1000 intl units oral capsule), 1000 Int_Unit= 1 cap, PO, Daily cyanocobalamin(Vitamin B12 100 mcg oral tablet), 100 mcg= 1 tab, PO, Daily dicyclomine(dicyclomine 10 mg oral capsule), See Instructions, 3 refills finasteride(finasteride 5 mg oral tablet), See Instructions glucosamine(glucosamine 500 mg oral tablet), 1500 mg= 3 tab, PO, Daily omeprazole(omeprazole 20 mg oral delayed release capsule), See Instructions pneumococcal 23-polyvalent vaccine(Pneumovax 23 injectable solution), 0.5 mL, IM, ONCE terazosin(terazosin 5 mg oral capsule), See Instructions tetanus/diphth/pertuss (Tdap) adult/adol(tetanus/diphth/pertussis (Tdap) adult/adol 5 units-2 units-15.5 mcg/0.5 mL intramuscular suspension), 0.5 mL, IM, ONCE turmeric Allergies NKA Social History Smoking Status Never smoked cigarettes Alcohol Use:Current Type:Beer, Wine, Liquor Frequency:Daily Maximum drinks per episode in last year:3 Has alcohol use interfered with work or home life:No Do you ever drink more than intended:No Has anyone been hurt or at risk by your drinking:No Concerns about alcohol use in household:No Employment/School Status:Employed Description:Professor at [employer] Exercise Times per week:Daily Self assessment:Good condition Exercise type:Walking - Comments: Tore rotator cuff with fall in 2017 and still not pain free and limits weight lifting Home/Environment Lives with:Spouse Substance Abuse - Denies Substance Abuse Tobacco - Denies Tobacco Use Family History Asthma: Father. Heart attack: PGF. Stroke: Mother and PGM.Negative: PGF. Stroke: Mother. Health Status Family Member(s) Family Member(s) Relationship: Mother, Age: 89 Years Relationship: Father, Age: 89 Years Immunizations Vaccine Date Status RSV Vaccine Unspecified 2023 Recorded Comments : [facility] pharm tetanus/diphtheria/pertuss, acel (Tdap) 09/24/2022 Recorded pneumococcal 23-valent vaccine 09/24/2022 Recorded influenza virus vaccine, inactivated 02/16/2022 Recorded Comments : 0.70mL given at [facility] pharmacy SARS-CoV-2 (COVID-19) mRNA BNT-162b2 vax 02/01/2021 Recorded SARS-CoV-2 (COVID-19) mRNA BNT-162b2 vax 08/04/2020 Recorded Comments : [facility] SARS-CoV-2 (COVID-19) mRNA BNT-162b2 vax 07/14/2020 Recorded Comments : [facility] zoster vaccine, inactivated 05/02/2020 Recorded influenza virus vaccine, inactivated 05/03/2018 Given pneumococcal 13-valent vaccine 07/05/2014 Given influenza virus vaccine, inactivated 03/2014 Recorded tetanus/diphtheria/pertuss, acel (Tdap) 07/01/2013 Given zoster vaccine live 06/28/2012 Given influenza virus vaccine, H1N1 04/27/2009 Recorded Comments : 2022-09-30: Historical information-source unspecified pneumococcal 23-valent vaccine 03/08/2009 Recorded hepatitis A pediatric vaccine 07/09/2004 Recorded tetanus toxoid 05/08/2003 Recorded Recommendations Health Maintenance Pending(in the next year) OverDue Adult Influenza Vaccine due12/05/22and every 1year Due Adult COVID-19 Vaccination due06/10/23Unknown Frequency Adult Social Determinants of Health Screening due06/10/23Unknown Frequency Medicare Annual Wellness Visit due06/10/23and every 1year Shingles Vaccine due06/10/23One-time only Satisfied(in the past 1 year) Satisfied Adult Tdap/Td Vaccine on09/24/22.Satisfied by FREDY Villa Paul Body Mass Index on09/02/22.Satisfied by TREVON Castro Paula Electronic Signature on File Electronically Reviewed/Signed by: Geovanna Cassidy DO Author Signature Dt/Tm:06/10/2023 10:57 AM Resident Department of Family Medicine Electronically Reviewed/Signed by: Alexander Cook MD Cosigner Signature Dt/Tm: 06/10/2023 12:00 PM Department of Family Medicine AD Patient Care team information Care Team Personnel Name: Radha Schneider Position: HIS Supervisor_P Member Role: HIS Lifetime Name: MD Ravinder, Aubrey Garcia Position: Physician Member Role: Lifetime Relationship Address: Address: [address] [place] [address] [address] [place] [address] [place] Name: MD Mayte, Ashvin P Position: Physician - Family Med Member Role: Primary Care Provider Address: Address: [address] [facility] [address] [place] [address] [place] Care Team Related Persons Name: MARKEL TEJEDA Name: GABBI TEJEDA Address: home [address] [place] [address], [place] [id number]
[2023-07-04] MEDS: ONDANSETRON INJ 2 MG/ML 2 ML VIAL IV PRN (00:36)
--- NOTE | 2023-07-04 02:44 | Surgery Consultation ---
Date of Consultation July 04, 2023 Assessment & Plan (1) SBO (small bowel obstruction): Plan 73-year-old gentleman presents with small bowel obstruction. He had a similar episode 1 year ago which resolved with conservative management. No surgical indications at this time. We will treat him conservatively with bowel rest, IV fluid hydration, pain control. If he develops vomiting, he will need an NG tube. We will continue to monitor him while he is here. History of Present Illness Reason for Consultation: SBO Requesting Physician: Anthony Garcia MD Attending Physician: Anthony Garcia MD History of Present Illness 73-year-old gentleman with a past history of multiple abdominal operations presents with 2-day history of increasing abdominal pain. He did have nausea and vomiting at first but now denies nausea. Last bowel movement 2 days ago. Passed flatus yesterday. No flatus today. No fevers or chills. Currently resting in bed, pain somewhat improved. No NG tube in place. CT scan demonstrates partial small bowel obstruction. He had a small bowel obstruction approximately 1 year ago which resolved with conservative management over 2 days. Allergies Allergy/AdvReac Type Severity Reaction Status Date / Time No Known Allergies Allergy Verified 07/03/23 20:04 Home Medications Medication Instructions Recorded Confirmed Type acidophilus 100 million 1 cap PO QAM 10/10/21 07/03/23 History cell-pectin, citrus 10 mg capsule atorvastatin 20 mg tablet 20 mg PO DAILY 10/10/21 07/03/23 History azelastine 205.5 mcg (0.15 %) 2 spray intranasal BID PRN 10/10/21 07/03/23 History nasal spray Congestion dicyclomine 10 mg capsule 10 mg PO QID PRN Abdominal Pain 10/10/21 07/03/23 History finasteride 5 mg tablet 5 mg PO QAM 10/10/21 07/03/23 History s-adenosylmethionine 400 mg tablet 400 mg PO QAM 10/10/21 07/03/23 History (ELBA-e) cholecalciferol (vitamin D3) 25 0 mcg PO DAILY 06/26/22 07/03/23 History mcg (1,000 unit) tablet (Vitamin D3) glucosamine sulfate 1,000 mg 1,000 mg PO DAILY 06/26/22 07/03/23 History capsule omeprazole 20 mg capsule,delayed 20 mg PO BID 06/26/22 07/03/23 History release terazosin 5 mg capsule 5 mg PO QAM 06/26/22 07/03/23 History vitamin E 268 mg (400 unit) capsule 268 mg PO DAILY 06/26/22 07/03/23 History Patient History Medical History GERD (gastroesophageal reflux disease) Hyperlipidemia BPH (benign prostatic hyperplasia) Rotator cuff injury RIGHT Osteoarthritis HIPS Chronic bronchitis STATES YEARS AGO; NO ISSUES IN YEARS Surgical History History of left cataract surgery S/P colonoscopy Status post tonsillectomy S/P colon resection DURING APPY SURGEON REMOVED SOMETHING SUSPICIOUS IN COLON S/P appendectomy S/P inguinal hernia repair RIGHT Family History Grandfather Hypertension Social History Smoking Status: Never smoker Second Hand Exposure: No; Do You Dip or Chew Tobacco: No; Hx Alcohol Use: Yes Alcohol type: beer, wine and hard liquor Hx Substance Use: No Preferred Language: Yemeni Communication Ability: Effective 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 Beliefs That Will Affect Care: None Current Living Situation: Spouse Feels Safe at Home: Yes Safety Concerns: Feels Safe At This Time Assistive Devices: None Review of Systems Review of Systems: All systems reviewed & are unremarkable except as noted in HPI & below Physical Exam Constitutional: WD/WN, vitals as above Eyes: PERRL, conjunctivae normal, anicteric sclerae Neck: trachea midline, no thyromegaly Respiratory: normal respiratory effort; no respiratory distress and no labored breathing Cardiovascular: Rate/Rhythm: regular rate and regular rhythm Gastrointestinal (Abdomen): Inspection/Auscultation: abdomen normal to inspection and + abdomen distended (Mild) Percussion/Palpation: + abdomen tender (Diffuse, mild) and abdomen soft; no guarding and abdomen not rigid Skin: no rashes, warm and dry Psychiatric: A+Ox3, euthymic affect Results & Data Vital Signs (Past 12 Hours) Vital Signs Temp Pulse Pulse Resp BP BP Pulse Ox 07/03/23 21:55 36.9 C 88 16 146/84 H 94 07/03/23 19:45 80 18 129/80 95 07/03/23 15:14 37 C 82 14 148/87 H 96 O2 Del Method 07/03/23 21:55 Room Air 07/03/23 19:45 Room Air 07/03/23 15:14 Room Air Laboratory Results 07/03/23 07/03/23 07/03/23 Range/Units 21:41 19:45 16:37 WBC 14.32 H (4.8-10.8) K/ul RBC 5.53 (4.70-6.10) M/uL Hgb 17.3 (14.0-18.0) g/dl Hct 49.7 (42.0-52.0) % MCV 89.9 (80.0-100.0) fL MCH 31.3 (25.0-34.0) pg MCHC 34.8 (32.0-36.0) g/dL RDW Std Deviation 37.8 (36.4-46.3) fL RDW Coeff of [place] 11.5 (11.5-14.5) % Plt Count 172 (130-400) K/uL MPV 11.3 (9.4-12.4) fL Immature Gran % (Auto) 0.4 % Neut % (Auto) 86.4 % Lymph % (Auto) 8.7 % Alfalfa % (Auto) 4.3 % Eos % (Auto) 0.1 % Baso % (Auto) 0.1 % Neut # (Auto) 12.38 H (1.40-6.50) K/uL Lymph # (Auto) 1.24 (1.20-3.40) K/uL Alfalfa # (Auto) 0.61 H (0.11-0.59) K/uL Eos # (Auto) 0.01 (0.00-0.50) K/uL Baso # (Auto) 0.02 (0.00-0.20) K/uL Immature Gran # (Auto) 0.06 (0.01-0.20) K/uL Sodium 137 (136-145) mmol/L Potassium 4.0 (3.5-5.1) mmol/L Chloride 99 (98-107) mmol/L Carbon Dioxide 29 (21-32) mmol/L Anion Gap 9 (3-11) BUN 23 (6-23) mg/dl Creatinine 1.04 (0.6-1.4) mg/dl Est Cr Clr Drug Dosing 61.2 ml/min Est GFR ( Amer) 82.2 ml/min Est GFR (Non-Af Amer) 70.9 ml/min BUN/Creatinine Ratio 22.1 H (10-20) Glucose 158 H (70-99(Fasting)) mg/dl Calcium 10.5 H (8.6-10.3) mg/dl Total Bilirubin 1.0 (0.2-1.0) mg/dl AST 24 (13-39) U/L ALT 28 (7-52) U/L Alkaline Phosphatase 77 (34-104) U/L Total Protein 7.8 (6.0-8.3) gm/dl Albumin 5.0 (3.4-5.0) gm/dl Globulin 2.8 (2.5-4.0) gm/dl Albumin/Globulin Ratio 1.8 (0.9-2) Lipase 9 L (11-82) U/L Urine Color Yellow Urine Appearance Clear (Clear) Urine pH 5.5 (4.5-7.5) Ur Specific [place] > 1.045 H (1.000-1.030) Urine Protein Trace H (Negative) Urine Glucose (UA) Negative (Negative) Urine Ketones Negative (Negative) Urine Blood Negative (Negative) Urine Nitrite Negative (Negative) Urine Bilirubin Negative (Negative) Urine Urobilinogen Negative (Negative) Ur Leukocyte Esterase Negative (Negative) Urine RBC 0-4 (0-4) /hpf Urine WBC 0-5 (0-5) /hpf Ur Epithelial Cells 0-5 (0-5) /lpf Urine Bacteria Negative (Negative) Hyaline Casts 0-5 (0-5) /lpf SARS-CoV-2, RNA, NAAT NEGATIVE (NEGATIVE) Diagnostic Findings Exam(s): CT ABDOMEN + PELVIS With Contrast IV Amt: 80 ml optiray 320 EXAM: CT Abdomen and Pelvis With Intravenous Contrast CLINICAL HISTORY: Reason for exam: Abd pain, h/o SBO. TECHNIQUE: Axial computed tomography images of the abdomen and pelvis with intravenous contrast. CTDI is 24.71 mGy and DLP is 1230.92 mGy-cm. Automated exposure control was utilized for the study. A dose lowering technique was utilized adhering to the principles of ALARA. CONTRAST: Patient received 80 ml optiray 320 of IV contrast COMPARISON: 06/26/2022. FINDINGS: Lung bases: Mild bilateral lower lobe and right middle lobe atelectasis . Heart: Unremarkable. No cardiomegaly. No significant pericardial effusion. Normal cardiac size. ABDOMEN: Liver: Unremarkable. No mass. Gallbladder and bile ducts: Unremarkable. No calcified stones. No ductal dilation. Pancreas: Unremarkable. No mass. No ductal dilation. Spleen: Unremarkable. No splenomegaly. Adrenals: Unremarkable. No mass. Kidneys and ureters: Unremarkable. No solid mass. No hydronephrosis. Stomach and bowel: Distention of several left upper quadrant small bowel loops with air-fluid level reaching 3.3 cm in maximum dimension with gastric distention, combination of findings concerning for small bowel obstruction, zone of transition likely at the level of the right lower quadrant/distal ileum and best seen on images 64 through 57, series 2 and coronal images 48 through 53, series 300. Diverticulosis with no signs of diverticulitis. The colon is decompressed. PELVIS: Appendix: No findings to suggest acute appendicitis. Bladder: Unremarkable. No mass. Reproductive: Unremarkable as visualized. ABDOMEN and PELVIS: Intraperitoneal space: Unremarkable. No free air. No significant fluid collection. Bones/joints: Multilevel degenerative disease of the spine, more significant at L5-S1. No acute fracture. No dislocation. Soft tissues: Unremarkable. Vasculature: Mild data atherosclerotic disease of aorta with no aneurysm or dissection. Lymph nodes: Unremarkable. No enlarged lymph nodes. IMPRESSION: 1. Mild bowel obstruction with zone of transition likely within the right lower quadrant/mid distal ileum. Diverticulosis with no signs of diverticulitis with decompression of the colon. 2. Normal abdominal viscera. Electronically signed by: Bernie Mark MD 07/03/23 19:58 PM
[2023-07-04] MEDS: PROCHLORPERAZINE 10 MG in SYRINGE 8 ML IV ONE (03:09)
[2023-07-04 06:47] LABS: Basophils # (auto) 0.02 K/uL (0.00-0.20); Basophils % (auto) 0.2 %; Eosinophils # (auto) 0.01 K/uL (0.00-0.50); Eosinophils % (auto) 0.1 %; Hematocrit (blood only) 39.5 % (42.0-52.0); Immature Granulocytes # (auto) 0.06 K/uL (0.01-0.20); Immature Granulocytes % (auto) 0.5 %; Lymphocytes # (auto) 1.22 K/uL (1.20-3.40); Lymphocytes % (auto) 9.8 %; Mean Corpuscular Hemoglobin 31.8 pg (25.0-34.0); Mean Corpuscular Hgb Conc 35.4 g/dL (32.0-36.0); Mean Corpuscular Volume 89.8 fL (80.0-100.0); Mean Platelet Volume 11.5 fL (9.4-12.4); Monocytes # (auto) 0.82 K/uL (0.11-0.59); Monocytes % (auto) 6.6 %; Neutrophils # (auto) 10.34 K/uL (1.40-6.50); Neutrophils % (auto) 82.8 %; Platelet Count 151 K/uL (130-400); RDW Coefficient of Variation 11.8 % (11.5-14.5); RDW Standard Deviation 38.5 fL (36.4-46.3); White Blood Count 12.47 K/ul (4.8-10.8)
[2023-07-04 07:02] LABS: BUN Creatinine Ratio 21.8 (10-20); Bilirubin,Total 0.9 mg/dl (0.2-1.0); Calcium 9.1 mg/dl (8.6-10.3); Creatinine Clr Calc Pharmacy 65.1 ml/min; Est GFR (African American) 85.1 ml/min; Est GFR (Non-African American) 73.4 ml/min; Magnesium 2.2 mg/dl (1.7-2.4); Potassium 4.1 mmol/L (3.5-5.1)
[2023-07-04] MEDS: PANTOprazole 40 MG in SYRINGE 0 ML IV SCH (10:32)
--- NOTE | 2023-07-04 14:32 | Discharge Summary ---
Date of Service July 04, 2023 Admission HPI Per Admitting Provider The patient is a 73-year-old male with a past medical history including BPH with LUTS, SBO, hyperlipidemia, GERD, and previous colon resection. He presents to the emergency department with symptoms of progressively worsening abdominal pain, nausea, vomiting over the past 1 and half to 2 days. He reports his last bowel movement was yesterday evening. His most recent hospitalization for SBO was from 06/26-06/27/2022, which resolved spontaneously with conservative treatment. 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 He admits his water intake is not perfect, but denies any changes in dietary pattern otherwise. He reports ongoing issues with urination due to his BPH, and attributes some difficulty urination now due to decreased oral intake Principal Diagnosis SBO Discharge Exam The patient is awake, alert and oriented 3 HEENT--PERRL, EOMI Neck--supple. No JVD. No bruits. Thyroid normal, trachea midline, no adenopathy. Heart--normal S1 and S2. No murmurs, rubs or gallops. Lungs--clear bilaterally, no respiratory distress, no accessory muscle use. Abdomen--normal bowel sounds and soft. decreased tenderness Discharge Data Allergies Allergy/AdvReac Type Severity Reaction Status Date / Time No Known Allergies Allergy Verified 07/03/23 20:04 Consultations 07/03/23 21:00 ED Decision to Admit Stat Ordered Studies 07/03/23 15:18 CT abd pelvis IV con only Stat Hospital Course (1) SBO (small bowel obstruction): (2) S/P colon resection: (3) GERD (gastroesophageal reflux disease): (4) BPH loc w urin obs/LUTS: (5) Hyperlipidemia: Plan Recurrent small bowel obstruction/history of colon resection- CT scan abdomen pelvis shows small bowel obstruction with transition point right lower quadrant/mid distal ileitis Most recent admission from 06/26-06/27/2022 for SBO, resolved spontaneously without NG tube Patient resolved with conservative management again. Patient will be discharged on clear liquid diet. with instructions to advance slowly BPH with LUTS- resume home meds GERD- resume home meds Total Time Total Time Spent Total Time Spent (In Minutes): 32 Discharge Plan Discharge Items Patient Disposition: Home - Self-Care Reason For Visit: RECURRENT SBO Discharge Diagnosis: Small Bowel obstruction Activity: Resume your previous activity Non-emergency contact: Primary Care Provider Call non-emergency contact if: you have any medication questions Follow-up/Referrals: Ashvin Hu MD [Primary Care Provider] - (CALL YOUR PRIMARY CARE PHYSICIAN AND MAKE A HOSPITAL FOLLOW UP VISIT IN 7-10 DAYS ) Diet: Clear liquid Addtl Attending Provider Instructions: Good afternoon Mr. Peck, You were found to have a small bowel obstruction. Thankfully you improved quickly with conservative management. We will start a clear liquid diet today. Any liquid that you can see through. Tomorrow we can start a full liquid diet. If you continue to handle this diet, and you do not notice worsening abdominal pain, constipation, nausea, or vomiting, then we will advance you to a low fiber diet on Thursday. Please return to the hospital if your symptoms worsen. If you continue to do well at home, I recommend a followup with your PCP in 1-2 weeks. Below is some information on a low fiber diet. A low fiber diet is typically recommended for individuals with certain medical conditions or as a temporary measure to relieve digestive symptoms. Here is some basic information about a low fiber diet: 1. Purpose: A low fiber diet limits the intake of foods high in dietary fiber to reduce the workload on the digestive system and ease symptoms like diarrhea, abdominal pain, or cramping. 2. Foods to limit or avoid: - Whole grains (e.g., whole wheat, whole oats, brown rice) - Legumes (e.g., lentils, beans, chickpeas) - Nuts and seeds - Raw fruits and vegetables (except for some cooked or peeled options) - High-fiber cereals or breads 3. Foods generally allowed: - Refined grains (e.g., white bread, white rice, refined cereals) - Cooked and peeled fruits and vegetables (e.g., applesauce, canned fruits, cooked carrots) - Lean meats, poultry, and fish - Dairy products (unless lactose intolerant) - Eggs 4. Cooking and preparation methods: - Choose peeled or cooked fruits and vegetables instead of raw ones. - Remove seeds and skin from fruits and vegetables. - Opt for refined grain products instead of whole grains. - Cook or soak legumes to reduce their fiber content. Wishing you the best in your recovery. Kindest regards, Jerry Robledo MD Pending Studies at Discharge: No Stand-Alone Forms: [facility] [place], Smoking Cessation Medications and DC Order Prescriptions: Continued atorvastatin 20 mg Tablet 20 mg PO DAILY dicyclomine 10 mg Capsule 10 mg PO QID PRN (Reason: Abdominal Pain) finasteride 5 mg Tablet 5 mg PO QAM ELBA-e 400 mg Tablet 400 mg PO QAM azelastine 205.5 mcg (0.15 %) [place],Non-Aerosol 2 spray INTRANASAL BID PRN (Reason: Congestion) acidophilus-pectin, citrus 100 million cell-10 mg Capsule 1 cap PO QAM omeprazole 20 mg capsule,delayed release(DR/EC) 20 mg PO BID terazosin 5 mg capsule 5 mg PO QAM vitamin E 268 mg (400 unit) Capsule 268 mg PO DAILY cholecalciferol (vitamin D3) [Vitamin D3] 25 mcg (1,000 unit) Tablet 0 mcg PO DAILY glucosamine sulfate 1,000 mg Capsule 1,000 mg PO DAILY Rx Instructions: administer with a meal Discharge Orders: Discharge Order (Routine); Ordered 07/04/23 Ordered By: Jerry Montilla/Other Patient Handouts: Small Bowel Obstruction, Low-Fiber Diet, Clear Liquid Diet Dc, Full Liquid Diet Dc Admission Data Admit Date/Time: 07/03/23 20:54 Attending Provider: Jerry Robledo Admit Provider: Anthony Garcia Primary Care Provider: Ashvin Hu Other Providers: Anthony Garcia Other Interventions: Discharge Summary Assessment (RN) Last Done: 07/04/23 14:45 Coding Level of Care Code 93719 INP/OBS DISCH >30 MIN Diagnoses SBO (small bowel obstruction) K56.609 S/P colon resection Z90.49 GERD (gastroesophageal reflux disease) K21.9 BPH loc w urin obs/LUTS N40.1 Hyperlipidemia E78.5
--- NOTE | 2023-07-09 14:52 | Coding Query ---
CODING QUERY To promote full compliance with coding requirements relating to patient care, provider participation is requested in all cases of medical records coder uncertainty. Please assist us with the question(s) below: Coding Question(s): There is documentation, on the H&P and on the Discharge Summary of , BPH loc w urin obs/LUTS. Please clarify below: ( x) BPH with Urinary Obstruction/lower urinary tract symptom was monitored and/or treated during this admission ( ) BPH with lower urinary tract symptom unspecified was monitored and or treated during this admission ( ) BPH with lower urinary tract symptom specified was monitored and/or treated during this admission. Please specify symptom ( ) Other: Please Specify ( ) BPH with Urinary Obstruction/lower urinary tract symptom was Not monitored and or treated during this admission Physician's Response(s): Thank you Lucretia Villalba Principal Diagnosis: "that condition established after study, to be chiefly responsible for occasioning the admission of the patient to the hospital for care." Co-Existing Principal Diagnosis: "when two or more diagnoses equally meet the criteria for principal diagnosis as determined by the circumstances of admission, diagnostic work up, and/or therapy provided, and the Alphabetic Index, Tabular List, or another coding guideline does not provide sequencing direction, any one of the diagnoses may be sequenced first." "When the physician has documented what appears to be a current diagnosis in the body of the record, but has not included the diagnosis in the final diagnostic statement, the physician should be asked whether the diagnosis should be added." (Source Coding [facility] 2 QTR90. p3-4) KAVIN
== END 2023-07-04 15:05 | disposition home or self-care (01) | DRG 389 ==
LOC: ED 15:03 → INTOOBSV 20:54 → 3N 20:54 → SUATTDRO 20:54 → 3N 22:11